=== PATIENT | male | born 1935 | race Caucasian/White ===

== ENCOUNTER → 2016-12-02 | Emergency (ER) | payer MEDICARE, BC ==
[~2016-12-02] VITALS: Ht 182.9 cm; Wt 106.1 kg
[~2016-12-02] MED LIST: ALLO300T2 PO; ASPI325T2 PO; BISA-79 PO; BUPR300T54 PO; CARV3.12 PO; DIGO125T4 PO; FURO80TA3 PO; GABA400C PO; LEVO125T PO; LISI-607 PO; LORA-980 PO; METF500T4 PO; NITR0.4T6 SL; OXYC-128 PO; ROSU20TA PO; SOTA80TA PO; SPIR25TA4 PO; TAMS0.4C34 PO
[2016-12-02 14:00] VITALS: BP 90/46
== END | disposition home or self-care (01) ==
LOC: ER 14:02
DX: L50.9 Urticaria, unspecified (principal); I10 Essential (primary) hypertension; E11.9 Type 2 diabetes mellitus without complications; E78.5 Hyperlipidemia, unspecified; G89.29 Other chronic pain; M10.9 Gout, unspecified; M54.5 Low back pain; Z79.82 Long term (current) use of aspirin; Z88.1 Allergy status to other antibiotic agents; Z88.8 Allergy status to other drugs, medicaments and biological substances; Z95.810 Presence of automatic (implantable) cardiac defibrillator; Z95.0 Presence of cardiac pacemaker
CPT/HCPCS: A4606; Z7610

== ENCOUNTER 2017-07-05 20:02 | Inpatient (IN) | payer MEDICARE, BC ==
[~2017-07-05] VITALS: Ht 185.4 cm; Wt 115.7 kg
--- NOTE | 2017-07-05 20:17 | NUR ---
KASIRA 678 FROM HOME FOR FEVER AND CHILLS / WEAKNESS. PT STATES S/P GLF X 3 DAYS AGO, PT STATES HIT POSTERIOR HEAD. NO TRAUMA NOTED. PT AOX3 RR EVEN AND UNLABORED. NO SOB NOTED. NAD NOTED. NO NVD AT THIS TIME. PT GOWNED AND PLACED ON MONITOR. BRENNA LLOYD AT BEDSIDE FOR EVAL.
[2017-07-05] MEDS ORDERED: predniSONE 20 MG TABLET ONE (20:23)
[2017-07-05] MEDS ORDERED: ACETAMINOPHEN ES 500 MG TABLET ONE (20:23)
--- NOTE | 2017-07-05 20:29 | NUR ---
PT TO RADIOLOGY FOR CT HEAD
[2017-07-05] MEDS ORDERED: ALBUTEROL FS 2.5 MG/3 ML VIAL.NEB CONTNEB ONE (20:30)
[2017-07-05] MEDS ORDERED: IPRATROPIUM NEB FS 0.5 MG/2.5 ML AMPUL.NEB NEB ONE (20:30)
[2017-07-05] MEDS ORDERED: ACETAMINOPHEN ES 500 MG TABLET PO ONE (20:30)
[2017-07-05] MEDS ORDERED: predniSONE 20 MG TABLET PO ONE (20:30)
[2017-07-05] MEDS ORDERED: IV NS 0.9% 500 ML BAG IV ONE (20:30)
[2017-07-05] MEDS ORDERED: ALBUTEROL FS 2.5 MG/0.5 ML VIAL.NEB ONE (20:37)
[2017-07-05] MEDS ORDERED: IPRATROPIUM NEB FS 0.5 MG/2.5 ML AMPUL.NEB ONE (20:37)
--- NOTE | 2017-07-05 20:38 | NUR ---
PT RETURNED FROM CT. RT AT BEDSIDE FOR BREATHING TX.
--- NOTE | 2017-07-05 20:40 | NUR ---
RT AT BEDSIDE FOR BREATHING TX.
[2017-07-05 21:00] LABS: BASOPHILS % (AUTO) 0.5 % (0.0-2.0); EOSINOPHILS # (AUTO) 0.2 /CMM (0.0-0.7); EOSINOPHILS % (AUTO) 2.5 % (0.0-6.0); HEMATOCRIT 30 % (39-51); HEMOGLOBIN 10.4 g/dL (13.5-17.5); LYMPHOCYTES # (AUTO) 1.5 /CMM (0.8-4.8); LYMPHOCYTES % (AUTO) 17.5 % (20.0-44.0); MEAN CORPUSCULAR HEMOGLOBIN 32 PG (26.0-33.0); MEAN CORPUSCULAR HGB CONC 35 g/dl (31.0-36.0); MEAN CORPUSCULAR VOLUME 92 fL (80-96); MONOCYTES # (AUTO) 0.4 /CMM (0.1-1.30); NEUTROPHILS # (AUTO) 6.4 /CMM (1.8-8.9); NEUTROPHILS % (AUTO) 74.5 % (43.0-81.0); PLATELET COUNT (AUTO) 179 /CMM (150-450); RED BLOOD CELL COUNT(AUTO) 3.26 MIL/uL (4.5-6.0); WHITE BLOOD COUNT (AUTO) 8.5 K/uL (4.3-11.0)
[2017-07-05 21:11] LABS: INR 1.12 (0.87-1.13); PROTHROMBIN TIME 12.1 SECS (9.5-12.7)
[2017-07-05 21:14] LABS: CALCIUM, SERUM 8.7 mg/dL (8.5-10.1); CARBON DIOXIDE 26 mmol/L (21-32); CHLORIDE 100 mmol/L (98-107); GLUCOSE 126 mg/dL (74-106); POTASSIUM 3.9 mmol/L (3.5-5.1); SODIUM SERUM 136 mmol/L (136-145); UREA NITROGEN, BLOOD 10 mg/dL (7-18)
[2017-07-05 21:16] LABS: ALANINE AMINOTRANSFERASE 18 U/L (12-78); ALKALINE PHOSPHATASE 96 U/L (46-116); ASPARTATE AMINOTRANSFERASE 14 U/L (15-37); BILIRUBIN,DIRECT 0.2 mg/dL (0.0-0.2); BILIRUBIN,TOTAL 0.8 mg/dL (0.2-1.0); LIPASE 45 U/L (73-393); TOTAL PROTEIN, SERUM 7.2 g/dL (6.4-8.2)
[2017-07-05 21:17] LABS: TROPONIN I 0.029 ng/mL (0.00-0.056)
--- NOTE | 2017-07-05 21:22 | NUR ---
URINE COLLECTED. SENT TO LAB
[2017-07-05 21:28] LABS: APPEARANCE,URINE CLEAR (CLEAR); BILIRUBIN,URINE 1+ (NEGATIVE); BLOOD, URINE NEGATIVE Ery/uL (NEGATIVE); COLOR,URINE YELLOW (YELLOW); KETONES,URINE NEGATIVE (NEGATIVE); LEUKOCYTE ESTERASE ,URINE NEGATIVE (NEGATIVE); NITRITE, URINE NEGATIVE (NEGATIVE); PROTEIN,URINE TRACE mg/dl (NEGATIVE); UGLUCOSE NEGATIVE (NEGATIVE)
[2017-07-05 21:37] LABS: BACTERIA,URINE None seen /HPF (None Seen); RBC,URINE 0-2 /HPF (0-2); SQUAMOUS EPITHELIAL CELL,UR Few /HPF (None Seen); WBC,URINE 0-2 /HPF (0-3)
--- NOTE | 2017-07-05 22:21 | NUR ---
PT TO RADIOLOGY FOR CT ABD/ PELVIS VIA W/C
[2017-07-05] MEDS ORDERED: IV NS 0.9% 250 ML IV ONE (22:30)
--- NOTE | 2017-07-05 22:30 | NUR ---
REPORT GIVEN TO [facility] FOR BED 326-2
--- NOTE | 2017-07-05 22:37 | NUR ---
PT RETURNED FROM CT.
[2017-07-05] MEDS ORDERED: NITROGLYCERIN 0.4 MG/TAB BOTTLE SL PRN (23:30)
[2017-07-05] MEDS ORDERED: BISACODYL (5 MG) 5 MG TABLET.DR PO PRN (23:30)
[2017-07-05] MEDS ORDERED: oxyCODONE/APAP (5/325 MG) 1 UDTAB TABLET PO PRN (23:30)
[2017-07-05] MEDS ORDERED: METOCLOPRAMIDE HCL 10 MG/2 ML VIAL ONE (23:50)
[2017-07-05] MEDS ORDERED: diphenhydrAMINE HCL 50 MG/ML VIAL ONE (23:50)
[2017-07-05 23:55] VITALS: BP 135/73
--- NOTE | 2017-07-05 23:55 | NUR ---
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 PT IS A/O X 3. DX: COPD EXACERBATION. DR. DARLING VIGIL AWARE OF ADMISSION. WITH HL LFA# 18 INTACT. DENIES PAIN. 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 WITH DISCOLORATION BALDO LOWER EXTREMITIES. BED ON LOWER POSITION AND LOCKED FOR SAFETY. UPPER PART OF BED SIDE RAILS ARE UP FOR SAFETY. PT INSTRUCTED TO CALL FOR HELP. CALL LIGHT AND URINAL WITHIN REACH. PLACED ON TELEMETRY.
--- NOTE | 2017-07-05 23:56 | NUR ---
PT TRANSFERED TO TELE BED 326 PER ACLS PROTOCOL.
[2017-07-06] VITALS: BP 135/73
[2017-07-06] MEDS ORDERED: METOCLOPRAMIDE HCL 10 MG/2 ML VIAL IV ONE
[2017-07-06] MEDS ORDERED: diphenhydrAMINE HCL 50 MG/ML VIAL IV ONE
[2017-07-06] MEDS ORDERED: GABAPENTIN 400 MG CAPSULE ONE ×2 (01:08→06:29)
[2017-07-06] MEDS: GABAPENTIN 400 MG CAPSULE PO SCH ×4 (01:13→17:19)
[2017-07-06 04:00] VITALS: BP 134/77
[2017-07-06] MEDS ORDERED: Z GUARD REMEDY 2 OZ OINT TP PRN (04:30)
[2017-07-06] MEDS ORDERED: ONDANSETRON HCL/PF 4 MG/2 ML VIAL IVP PRN (04:30)
[2017-07-06] MEDS ORDERED: HYDROCODONE/APAP 5/325MG 1 EACH TABLET PO PRN (04:30)
[2017-07-06] MEDS ORDERED: ACETAMINOPHEN 325 MG TABLET PO PRN (04:30)
[2017-07-06] MEDS ORDERED: BUMETANIDE INJ 4 MG in IV NS 0.9% 24 ML IV ONE (04:30)
[2017-07-06] MEDS ORDERED: BUMETANIDE INJ 0.25 MG/ML VIAL ONE (04:39)
[2017-07-06 06:45] LABS: BASOPHILS % (AUTO) 0.3 % (0.0-2.0); HEMATOCRIT 33 % (39-51); HEMOGLOBIN 11.1 g/dL (13.5-17.5); LYMPHOCYTES # (AUTO) 0.6 /CMM (0.8-4.8); LYMPHOCYTES % (AUTO) 8.8 % (20.0-44.0); MEAN CORPUSCULAR HEMOGLOBIN 31 PG (26.0-33.0); MEAN CORPUSCULAR HGB CONC 34 g/dl (31.0-36.0); MEAN CORPUSCULAR VOLUME 93 fL (80-96); MONOCYTES # (AUTO) 0.1 /CMM (0.1-1.30); MONOCYTES % (AUTO) 2.2 % (2.0-12.0); NEUTROPHILS # (AUTO) 5.6 /CMM (1.8-8.9); NEUTROPHILS % (AUTO) 88.7 % (43.0-81.0); PLATELET COUNT (AUTO) 188 /CMM (150-450); RDW COEFFICIENT OF VARIATION 16.3 (11.5-15.0); RED BLOOD CELL COUNT(AUTO) 3.55 MIL/uL (4.5-6.0); WHITE BLOOD COUNT (AUTO) 6.3 K/uL (4.3-11.0)
--- NOTE | 2017-07-06 07:00 | NUR ---
TELE/ BASEBALL CLUB MANAGER; PT ON V-PACING 71. SLEPT FINE. WITH OCC. DRY COUGH. DENIES PAIN. WILL ENDORSE TO THE DAY SHIFT NURSE.
[2017-07-06 07:20] LABS: CARBON DIOXIDE 27 mmol/L (21-32); CHLORIDE 101 mmol/L (98-107); GLUCOSE 263 mg/dL (74-106); PHOSPHORUS 3.4 mg/dL (2.5-4.9); POTASSIUM 4.1 mmol/L (3.5-5.1); SODIUM SERUM 138 mmol/L (136-145); UREA NITROGEN, BLOOD 12 mg/dL (7-18)
--- NOTE | 2017-07-06 07:52 | NUR ---
MS/RN OPENING NOTE PATIENT RECEIVED IN BED IN STABLE CONDITION. ALERT AND ORIENTED TIMES 3. NO SIGNS OF ACUTE DISTRESS. NO COMPLAIN OF PAIN OR DISCOMFORT. ALL NEEDS ATTENDED TO. CALL LIGHT WITHIN REACH. WILL CONTINUE TO MONITOR TO ENSURE SAFETY.
[2017-07-06 08:00] VITALS: BP 128/74
[2017-07-06] MEDS ORDERED: SOTALOL HCL 80 MG TABLET PO SCH (09:00)
[2017-07-06] MEDS: LEVOTHYROXINE SODIUM 125 MCG TABLET PO SCH (09:00)
[2017-07-06] MEDS: BUPROPION XL 150 MG TAB.ER.24 PO SCH (09:27)
[2017-07-06] MEDS: FUROSEMIDE 80 MG TABLET PO SCH (09:28)
[2017-07-06] MEDS: ASPIRIN 325 MG TABLET PO SCH (09:28)
[2017-07-06] MEDS: METFORMIN 500 MG TABLET PO SCH ×2 (09:28→16:30)
[2017-07-06] MEDS: TAMSULOSIN 0.4 MG CAP.SR.24H PO SCH (09:28)
[2017-07-06] MEDS: CARVEDILOL 3.125 MG TABLET PO SCH ×2 (09:28→21:00)
[2017-07-06] MEDS: LORATADINE 10 MG TABLET PO SCH (09:28)
[2017-07-06] MEDS: LISINOPRIL (5MG) 5 MG TABLET PO SCH (09:29)
[2017-07-06] MEDS: SPIRONOLACTONE 25 MG TABLET PO SCH (09:30)
[2017-07-06 11:11] LABS: RETICULOCYTE COUNT 2.5 % (0.6-2.5)
[2017-07-06 11:30] LABS: THYROID STIMULATING HORMONE 1.409 uIU/mL (0.358-3.74); URIC ACID 4.2 mg/dL (2.6-7.2)
[2017-07-06] MEDS: DIGOXIN 0.125 MG TABLET PO SCH (12:20)
--- NOTE | 2017-07-06 12:49 | NUR ---
MS/RN NOT ELIGIBLE FOR MRI PATIENT NOT ELIGIBLE FOR MRI DUE TO PT HAS CARDIAC PACEMAKER, WIRE SUTURES S/P CABG IN 1992, AND DENTAL PROSTHESIS. SPOKE WITH PATRICIA FROM RADIOLOGY/MRI AND MADE AWARE.
[2017-07-06 16:00] VITALS: BP 104/57
[2017-07-06] MEDS: POLYETHYLENE GLYCOL 3350 17 GM POWD.PACK PO SCH ×2 (17:01→22:13)
--- NOTE | 2017-07-06 18:23 | NUR ---
MS/RN CLOSING NOTE PATIENT IN BED IN STABLE CONDITION. ALERT AND ORIENTED TIMES 4. NO SIGNS OF ACUTE DISTRESS. NO COMPLAIN OF PAIN OR DISCOMFORT. STOOL OB NEED TO BE COLLECTED. ENDORSE TO NEXT SHIFT. ALL NEEDS ATTENDED TO. CALL LIGHT WITHIN IN REACH. CONTINUE TO MONITOR.
--- NOTE | 2017-07-06 19:30 | NUR ---
TELE/RN OPENING NOTES PT AWAKE A/OX4. CURRENTLY GETTING ECHO DONE. ON RA, BREATHING EVEN AND UNLABORED. NO S/S OF SOB OR PAIN. NO DISTRESS NOTED. ON TELE MONITOR V PACING WITH HEART RATE AT 70. IV TO LEFT FA PATENT AND INTACT. BED IN LOW/LOCKED POSITION, CALL LIGHT IN REACH. SIDE RAILS UPX2. WILL CONTINUE TO MONITOR
[2017-07-06 20:00] VITALS: BP 104/57
[2017-07-06 20:26] VITALS: BP 104/57
[2017-07-06] MEDS: SOTALOL HCL 80 MG TABLET PO SCH (20:42)
[2017-07-06] MEDS: ATORVASTATIN 40 MG TABLET PO SCH (22:00)
--- NOTE | 2017-07-06 22:39 | NUR ---
TELE/RN NOTES PT REFUSING SCHEDULED COREG, LIPITOR AND NEURONTIN. STATES THAT HE HAS SIDE EFFECTS SUCH HALLUCINATIONS, DIZZINESS AND FEELING LIKE HIS "THOUGHTS ARE ALL OVER THE PLACE". ALSO STATES THAT HE DOES NOT TAKE STATINS, ALTHOUGH IN THE MED RECON HE IS TAKING CRESTOR. EDUCATED PT ABOUT RISKS/BENEFITS OF EACH MEDICATION AND SIDE EFFECTS, PT STILL REFUSING. STATED THAT HE WILL NEED TO SPEAK TO THE MD ABOUT THESE MEDS. WILL ALSO ENDORSE TO AM SHIFT
[2017-07-07] VITALS (7 sets, daily range): BP systolic 116–138; BP diastolic 53–74
--- NOTE | 2017-07-07 05:25 | NUR ---
TELE/RN NOTES PT NOTES SLIGHT SOB AND IS REQUESTING BREATHING TX. NON-PRODUCTIVE COUGH NOTED. BREATHING EVEN AND UNLABORED. DOES NOT APPEAR IN DISTRESS. ELEVATED HOB. PAGED DARLING VIGIL FOR ORDER FOR POSSIBLE BREATHING TX.
[2017-07-07] MEDS: GABAPENTIN 400 MG CAPSULE PO SCH ×4 (06:00→16:59)
--- NOTE | 2017-07-07 06:00 | NUR ---
TELE/RN NOTES PT IS CALM, IN NO DISTRESS BUT STILL REQUESTING BREATHING TX. PAGED DARLING VIGIL AGAIN. AWAITING CALL BACK
[2017-07-07 07:13] LABS: BASOPHILS % (AUTO) 0.2 % (0.0-2.0); EOSINOPHILS # (AUTO) 0.2 /CMM (0.0-0.7); EOSINOPHILS % (AUTO) 2.3 % (0.0-6.0); HEMATOCRIT 33 % (39-51); HEMOGLOBIN 11.2 g/dL (13.5-17.5); LYMPHOCYTES # (AUTO) 1.4 /CMM (0.8-4.8); LYMPHOCYTES % (AUTO) 12.8 % (20.0-44.0); MEAN CORPUSCULAR HEMOGLOBIN 32 PG (26.0-33.0); MEAN CORPUSCULAR HGB CONC 34 g/dl (31.0-36.0); MEAN CORPUSCULAR VOLUME 94 fL (80-96); MONOCYTES # (AUTO) 0.4 /CMM (0.1-1.30); MONOCYTES % (AUTO) 3.9 % (2.0-12.0); NEUTROPHILS # (AUTO) 8.8 /CMM (1.8-8.9); NEUTROPHILS % (AUTO) 80.8 % (43.0-81.0); PLATELET COUNT (AUTO) 229 /CMM (150-450); RDW COEFFICIENT OF VARIATION 15.8 (11.5-15.0); RED BLOOD CELL COUNT(AUTO) 3.56 MIL/uL (4.5-6.0); WHITE BLOOD COUNT (AUTO) 10.9 K/uL (4.3-11.0)
--- NOTE | 2017-07-07 07:19 | NUR ---
TELE/RN CLOSING NOTES PT AWAKE, SITTING AT THE SIDE OF THE BED. A/OX3, INCREASED O2 TO 4LPM TEMPORARILY FOR PT'S COMPLAINTS OF SOB. DENIES PAIN, BREATHING IS EVEN AND UNLABORED. DOES NOT APPEAR TO BE IN ANY DISTRESS CURRENTLY. TELE MONITOR SHOWS VPACING WITH HR AT 71. IV TO LFA PATENT AND INTACT. MADE PT COMFORTABLE THROUGHOUT SHIFT. ALL NEEDS MET AND ATTENDED. BED IN LOW/LOCKED POSITION WITH CALL LIGHT IN REACH. SIDE RAILS UPX2. ENDORSED TO AM SHIFT IRINEO.
--- NOTE | 2017-07-07 07:30 | NUR ---
ms rn received on bed, awake,alert, oriented x4,patient on o2 3 liters, denies pain, will monitor patient.
[2017-07-07 07:48] LABS: CHOLESTEROL 188 mg/dL (<200); HDL CHOLESTEROL 41 mg/dL (40-60); LDL 136 mg/dL (0-99); TRIGLYCERIDES 97 mg/dL (30-150)
[2017-07-07 07:51] LABS: ALANINE AMINOTRANSFERASE 28 U/L (12-78); ALBUMIN 3.2 g/dL (3.4-5.0); ALKALINE PHOSPHATASE 99 U/L (46-116); ASPARTATE AMINOTRANSFERASE 19 U/L (15-37); BILIRUBIN,TOTAL 0.7 mg/dL (0.2-1.0); CALCIUM, SERUM 8.9 mg/dL (8.5-10.1); CARBON DIOXIDE 31 mmol/L (21-32); CHLORIDE 100 mmol/L (98-107); CREATININE 1.2 mg/dL (0.6-1.3); GLUCOSE 149 mg/dL (74-106); MAGNESIUM 1.8 mg/dL (1.8-2.4); PHOSPHORUS 3.4 mg/dL (2.5-4.9); POTASSIUM 3.9 mmol/L (3.5-5.1); SODIUM SERUM 138 mmol/L (136-145); TOTAL PROTEIN, SERUM 7.6 g/dL (6.4-8.2); UREA NITROGEN, BLOOD 19 mg/dL (7-18)
[2017-07-07] MEDS: FUROSEMIDE 80 MG TABLET PO SCH (08:55)
[2017-07-07] MEDS: BUPROPION XL 150 MG TAB.ER.24 PO SCH (08:55)
[2017-07-07] MEDS: LORATADINE 10 MG TABLET PO SCH (08:55)
[2017-07-07] MEDS: SPIRONOLACTONE 25 MG TABLET PO SCH (08:55)
[2017-07-07] MEDS: LEVOTHYROXINE SODIUM 125 MCG TABLET PO SCH (08:56)
[2017-07-07] MEDS: TAMSULOSIN 0.4 MG CAP.SR.24H PO SCH (08:56)
[2017-07-07] MEDS: ASPIRIN 325 MG TABLET PO SCH (08:56)
[2017-07-07] MEDS: LISINOPRIL (5MG) 5 MG TABLET PO SCH (09:00)
[2017-07-07] MEDS: CARVEDILOL 3.125 MG TABLET PO SCH ×2 (09:00→21:00)
[2017-07-07] MEDS: METFORMIN 500 MG TABLET PO SCH ×2 (09:00→16:58)
[2017-07-07] MEDS: SOTALOL HCL 80 MG TABLET PO SCH ×2 (09:00→22:10)
--- NOTE | 2017-07-07 09:00 | NUR ---
MS CORONA BREAKFAST SERVED,DUE MEDS GIVEN, TOLERATED WELL.
[2017-07-07] MEDS ORDERED: methylPREDNISolone SOD SUCC 125 MG/2ML VIAL IV SCH (09:30)
[2017-07-07] MEDS ORDERED: IPRATROPIUM NEB FS 0.5 MG/2.5 ML AMPUL.NEB NEB PRN (09:30)
[2017-07-07] MEDS ORDERED: ALBUTEROL FS 2.5 MG/0.5 ML VIAL.NEB NEB PRN (09:30)
--- NOTE | 2017-07-07 09:35 | NUR ---
MS RN WAS SEEN BY DR. CLOUD AND DR. SANTINO Jeff/ ORDERS MADE AND CARRIED OUT.
[2017-07-07] MEDS: ALBUTEROL FS 2.5 MG/0.5 ML VIAL.NEB NEB SCH ×5 (11:05→19:51)
[2017-07-07] MEDS: IPRATROPIUM NEB FS 0.5 MG/2.5 ML AMPUL.NEB NEB SCH ×5 (11:05→19:51)
[2017-07-07] MEDS ORDERED: TETRACYCLINE HCL 250 MG CAPSULE PO SCH (11:30)
[2017-07-07] MEDS: DIGOXIN 0.125 MG TABLET PO SCH (13:00)
[2017-07-07] MEDS: methylPREDNISolone SOD SUCC 125 MG/2ML VIAL IV SCH ×2 (13:00→21:00)
[2017-07-07] MEDS: DOXYCYCLINE HYCLATE (100 MG) 100 MG TABLET PO SCH ×2 (13:00→22:09)
--- NOTE | 2017-07-07 13:00 | NUR ---
MS RN REFUSED DUE MEDS AT THIS TIME.
--- NOTE | 2017-07-07 17:17 | NUR ---
MS RN PATIENT REFUSED MEDICATION AGAIN,WILL MONITOR PATIENT.
--- NOTE | 2017-07-07 18:18 | NUR ---
MS RN ON BED, NO SOB NOTED,ALL NEEDS ATTENDED.
--- NOTE | 2017-07-07 19:30 | NUR ---
MS RN OPENING NOTES: PATIENT IN BED, AOX4, ON O2 AT 2 LPM VIA NC, BREATHING EVEN AND UNLABORED, NO WHEEZING UPON AUSCULTATION, BREATH SOUNDS CLEAR AT UPPER LUNG ESTRADA. PIV OVER LFA G 18 INTACT AND PATENT TO FLUSH. APPEARS CALM AND IN NO DISTRESS. DENIES ANY PAIN OR DIFFICULTY BREATHING AT THIS TIME. PROVIDED FOR COMFORT AND SAFETY. BED IN LOWEST AND LOCKED POSITION, SIDERAILS UP X3. WILL CONT TO MONITOR.
[2017-07-07] MEDS: ATORVASTATIN 40 MG TABLET PO SCH (22:00)
[2017-07-07] MEDS: POLYETHYLENE GLYCOL 3350 17 GM POWD.PACK PO SCH (22:09)
--- NOTE | 2017-07-07 22:15 | NUR ---
RN NOTES: PATIENT REFUSED HIS SOLUMEDROL IV, SAYING IT CAUSES HIM TO HAVE HALLUCINATIONS, CARVEDILOL 3.125 MG, SAYING THAT IT CAUSES HIM TO THROW UP, AND ATORVASTATIN, SAYING THAT HE DOES NOT NEED ANY STATIN. PATIENT EDUCATION GIVEN PER MEDICATION THAT WAS REFUSED, BUT PATIENT STILL REFUSED.
--- NOTE | 2017-07-08 00:06 | NUR ---
RN NOTES: PATIENT REFUSED GABAPENTIN PO SCHEDULED AT THIS TIME, SAYING IT KEEPS HIM UP ALL NIGHT. WILL CONT TO MONITOR.
[2017-07-08] MEDS: ALBUTEROL FS 2.5 MG/0.5 ML VIAL.NEB NEB SCH ×7 (01:30→19:50)
[2017-07-08] MEDS: IPRATROPIUM NEB FS 0.5 MG/2.5 ML AMPUL.NEB NEB SCH ×7 (01:30→19:50)
--- NOTE | 2017-07-08 01:40 | NUR ---
RN NOTES: DR DARLING VIGIL MADE AWARE OF PATIENT'S REFUSAL OF SOLUMEDROL, ATORVASTATIN AND GABAPENTIN. NNO GIVEN.
[2017-07-08] MEDS: methylPREDNISolone SOD SUCC 125 MG/2ML VIAL IV SCH ×2 (05:00→13:00)
[2017-07-08] MEDS: GABAPENTIN 400 MG CAPSULE PO SCH ×5 (06:00→23:23)
--- NOTE | 2017-07-08 06:23 | NUR ---
MS RN CLOSING NOTES: PATIENT IN BED, AOX4, ON O2 AT 2 LPM VIA NC, BREATHING EVEN AND UNLABORED. PIV OVER LFA INTACT AND PATENT TO FLUSH. DUE MEDS GIVEN. PROVIDED FOR COMFORT AND SAFETY. NO ACUTE CHANGE IN CONDITION NOTED THROUGH SHIFT. WILL ENDORSE TO AM RN FOR IRINEO.
[2017-07-08 06:42] LABS: BASOPHILS % (AUTO) 0.2 % (0.0-2.0); EOSINOPHILS % (AUTO) 0.4 % (0.0-6.0); HEMATOCRIT 32 % (39-51); HEMOGLOBIN 10.8 g/dL (13.5-17.5); LYMPHOCYTES # (AUTO) 1.2 /CMM (0.8-4.8); LYMPHOCYTES % (AUTO) 15.8 % (20.0-44.0); MEAN CORPUSCULAR HEMOGLOBIN 32 PG (26.0-33.0); MEAN CORPUSCULAR HGB CONC 34 g/dl (31.0-36.0); MEAN CORPUSCULAR VOLUME 93 fL (80-96); MONOCYTES # (AUTO) 0.5 /CMM (0.1-1.30); MONOCYTES % (AUTO) 6.4 % (2.0-12.0); NEUTROPHILS # (AUTO) 5.8 /CMM (1.8-8.9); NEUTROPHILS % (AUTO) 77.2 % (43.0-81.0); PLATELET COUNT (AUTO) 219 /CMM (150-450); RDW COEFFICIENT OF VARIATION 15.3 (11.5-15.0); RED BLOOD CELL COUNT(AUTO) 3.41 MIL/uL (4.5-6.0); WHITE BLOOD COUNT (AUTO) 7.5 K/uL (4.3-11.0)
[2017-07-08 06:50] LABS: CALCIUM, SERUM 9.2 mg/dL (8.5-10.1); CARBON DIOXIDE 32 mmol/L (21-32); CHLORIDE 99 mmol/L (98-107); CREATININE 1.1 mg/dL (0.6-1.3); GLUCOSE 154 mg/dL (74-106); SODIUM SERUM 137 mmol/L (136-145); UREA NITROGEN, BLOOD 22 mg/dL (7-18)
--- NOTE | 2017-07-08 07:30 | NUR ---
MS Initial Notes: Patient resting in bed. Patient alert oriented x4. Non-labored breathing noted. Patient on 2 L nasal cannula. No signs of distress noted. IV site patent and intact. Bed at lowest/locked position. Call light within reach. Will continue to monitor.
--- NOTE | 2017-07-08 07:40 | NUR ---
RT DUPLICATE BREATHING TX ORDER, ADMINISTERED ONE SET AND NON ADMINISTERED DUPLICATE. PT IS AWAKE AND ALERT. NO SIGNS OF SOB OR RESPIRATORY DISTRESS NOTED AT THIS TIME.
[2017-07-08 08:00] VITALS: BP_SYST 118; BP_SYST 141; BP_DIAS 69; BP_DIAS 71
[2017-07-08] MEDS: LEVOTHYROXINE SODIUM 125 MCG TABLET PO SCH ×2 (08:20→11:07)
[2017-07-08] MEDS: BUPROPION XL 150 MG TAB.ER.24 PO SCH (09:00)
[2017-07-08] MEDS: CARVEDILOL 3.125 MG TABLET PO SCH ×2 (09:00→21:00)
[2017-07-08] MEDS: METFORMIN 500 MG TABLET PO SCH ×2 (09:00→17:00)
[2017-07-08] MEDS: ASPIRIN 325 MG TABLET PO SCH (09:28)
[2017-07-08] MEDS: TAMSULOSIN 0.4 MG CAP.SR.24H PO SCH (09:29)
[2017-07-08] MEDS: SPIRONOLACTONE 25 MG TABLET PO SCH (09:29)
[2017-07-08] MEDS: DOXYCYCLINE HYCLATE (100 MG) 100 MG TABLET PO SCH ×2 (09:30→22:03)
[2017-07-08] MEDS: FUROSEMIDE 80 MG TABLET PO SCH (09:30)
[2017-07-08] MEDS: SOTALOL HCL 80 MG TABLET PO SCH ×2 (09:30→22:03)
[2017-07-08] MEDS: LORATADINE 10 MG TABLET PO SCH (09:31)
[2017-07-08] MEDS: LISINOPRIL (5MG) 5 MG TABLET PO SCH (09:32)
--- NOTE | 2017-07-08 10:34 | NUR ---
MS Notes: Spoke to Dr. Gold. He clarified that the Furosemide ordered at 10:30 is an additional order that is to be administered
[2017-07-08] MEDS: FUROSEMIDE 100 MG/10 ML VIAL IV SCH ×3 (10:50→19:09)
--- NOTE | 2017-07-08 13:25 | NUR ---
MS Notes: Informed Dr. Estevez of patient's refusal of medications.
[2017-07-08] MEDS: DIGOXIN 0.125 MG TABLET PO SCH (13:28)
[2017-07-08] MEDS ORDERED: SOD FERRIC GLUC 125 MG in IV NS 0.9% 100 ML IV SCH (14:00)
--- NOTE | 2017-07-08 15:47 | NUR ---
ELFEGO received a call from [facility] TERA Bunn stating that pt. would like to speak with a counselor. SW met with pt. bedside. Pt. is alert and oriented x4. Pt. is very polite and pleasant. Pt. informed SW that his dog Easton at home has an ear infection and is not doing well. Pt. is worried since his is unable to drive and uses a walker and is unable to take the dog to their vet located on [facility] in [place]. ELFEGO called pt's animal vet clinic with pt. bedside and informed them of the situation. They informed SW that they cannot have anyone go picker operator the dog for the pt., however, to call Home Pet Doctor, Dr. Ramy Rea or Dr. Svetlana Caro at [facility] . ELFEGO called Dr. Ramy Rea and left him a voicemail message requesting a call back number for pt. . ELFEGO also called Dr. Mota but was unable to leave a voicemail message. ELFEGO gave both the phone numbers for mobile vets to the pt. Addendum: 07/08/17 at 1604 by REBECCA TELLES Pt. would like to be discharged home by noon tomorrow since he has an appt. at the vet at 2PM. Pt. will need ambulance transportation to his home. ELFEGO to inform briefcase sewer. Addendum: 07/08/17 at 1607 by REBECCA ORTEGA SW health policy manager Jacki was informed regarding pt. needed an ambulance tomorrow upon discharge. Jacki informed SW she will place the ambulance on will-call.
[2017-07-08 16:00] VITALS: BP 131/84
--- NOTE | 2017-07-08 19:15 | NUR ---
ms rn closing notes All needs provided, attended, and anticipated. Kept patient clean and comfortable in bed, call light with in patient reach, endorsed to next shift RN to continue care. No complaint of pain or discomfort at this time.
[2017-07-08 20:00] VITALS: BP 121/83
--- NOTE | 2017-07-08 20:00 | NUR ---
RN NOTES PATIENT UP ON CHAIR, ALERT AND ORIENTED X3, CALM, NO SOB, ON ROOM AIR, SPO2 96%, DENIES ANY PAIN AT THIS TIME, ABLE TO AMBULATE WITH WALKER, UNSTEADY GAIT, CONTINENT OF BOWEL AND BLADDER. NEEDS ATTENDED, CALL LIGHT WITHIN REACH.
[2017-07-08] MEDS: ATORVASTATIN 40 MG TABLET PO SCH (22:00)
[2017-07-08] MEDS: POLYETHYLENE GLYCOL 3350 17 GM POWD.PACK PO SCH (22:03)
--- NOTE | 2017-07-08 22:10 | NUR ---
RN NOTES PATIENT REFUSED LIPITOR STATING MEDICATION MADE PT CONFUSED. REFUSED COREG, EXPLAINED TO PATIENT RISKS AND BENEFITS AND OFFERED X3, PATIENT STILL REFUSED.
--- NOTE | 2017-07-08 23:24 | NUR ---
RN NOTES REFUSED NEURONTIN, PER PATIENT HAVING HALLUCINATIONS, WILL RETURN MEDICATION
[2017-07-09] MEDS: IPRATROPIUM NEB FS 0.5 MG/2.5 ML AMPUL.NEB NEB SCH ×2 (01:30→08:01)
[2017-07-09] MEDS: ALBUTEROL FS 2.5 MG/0.5 ML VIAL.NEB NEB SCH ×2 (01:30→08:01)
[2017-07-09] MEDS: GABAPENTIN 400 MG CAPSULE PO SCH (06:00)
[2017-07-09 06:35] LABS: BASOPHILS % (AUTO) 0.7 % (0.0-2.0); EOSINOPHILS # (AUTO) 0.4 /CMM (0.0-0.7); EOSINOPHILS % (AUTO) 5.6 % (0.0-6.0); HEMATOCRIT 35 % (39-51); HEMOGLOBIN 11.8 g/dL (13.5-17.5); LYMPHOCYTES # (AUTO) 2.1 /CMM (0.8-4.8); LYMPHOCYTES % (AUTO) 28.8 % (20.0-44.0); MEAN CORPUSCULAR HEMOGLOBIN 32 PG (26.0-33.0); MEAN CORPUSCULAR HGB CONC 34 g/dl (31.0-36.0); MEAN CORPUSCULAR VOLUME 93 fL (80-96); MONOCYTES # (AUTO) 0.6 /CMM (0.1-1.30); MONOCYTES % (AUTO) 7.9 % (2.0-12.0); NEUTROPHILS # (AUTO) 4.1 /CMM (1.8-8.9); PLATELET COUNT (AUTO) 244 /CMM (150-450); RDW COEFFICIENT OF VARIATION 15.5 (11.5-15.0); RED BLOOD CELL COUNT(AUTO) 3.74 MIL/uL (4.5-6.0); WHITE BLOOD COUNT (AUTO) 7.3 K/uL (4.3-11.0)
[2017-07-09 06:43] LABS: ALANINE AMINOTRANSFERASE 35 U/L (12-78); ALBUMIN 3.3 g/dL (3.4-5.0); ALKALINE PHOSPHATASE 100 U/L (46-116); ASPARTATE AMINOTRANSFERASE 25 U/L (15-37); BILIRUBIN,TOTAL 0.5 mg/dL (0.2-1.0); CALCIUM, SERUM 9.1 mg/dL (8.5-10.1); CARBON DIOXIDE 34 mmol/L (21-32); CHLORIDE 97 mmol/L (98-107); CREATININE 1.2 mg/dL (0.6-1.3); GLUCOSE 124 mg/dL (74-106); PHOSPHORUS 4.4 mg/dL (2.5-4.9); POTASSIUM 3.5 mmol/L (3.5-5.1); SODIUM SERUM 139 mmol/L (136-145); TOTAL PROTEIN, SERUM 7.7 g/dL (6.4-8.2); UREA NITROGEN, BLOOD 23 mg/dL (7-18)
--- NOTE | 2017-07-09 06:49 | NUR ---
RN NOTES PATIENT IS ALERT AND AWAKE, NO SOB, ON 2LPM VIA NC, RESPIRATION EVEN AND UNLABORED. NO COMPLAIN OF PAIN, COMPLIANT WITH CPAP DURING SLEEP, SELECTIVE ON MEDICATIONS, REFUSED LIPITOR, NEURONTIN AND COREG, CITING ADVERSE SIDE EFFECTS SUCH HALLUCINATIONS AND CONFUSION. MD AWARE OF REFUSAL. AMBULATES WITH WALKER TO THE TOILET, STOPPING MIDWAY FOR SOB. ALL NEEDS ATTENDED, CALL LIGHT WITHIN REACH.
--- NOTE | 2017-07-09 07:30 | NUR ---
PT RECEIVED RESTING COMFORTABLY IN BED. NO S/S OR C/O PAIN OR DISTRESS NOTED. SIDE RAILS UP X2, CALL LIGHT LEFT WITHIN REACH. WILL CONTINUE PLAN OF CARE.
[2017-07-09 08:00] VITALS: BP 126/72
[2017-07-09] MEDS: BUPROPION XL 150 MG TAB.ER.24 PO SCH (09:00)
[2017-07-09] MEDS ORDERED: ASPIRIN 81 MG TAB.CHEW PO SCH (09:00)
[2017-07-09] MEDS: CARVEDILOL 3.125 MG TABLET PO SCH (09:00)
[2017-07-09] MEDS: METFORMIN 500 MG TABLET PO SCH (09:00)
[2017-07-09] MEDS ORDERED: predniSONE 20 MG TABLET PO SCH (09:00)
[2017-07-09] MEDS: TAMSULOSIN 0.4 MG CAP.SR.24H PO SCH (09:19)
[2017-07-09 09:20] VITALS: BP 126/72
[2017-07-09] MEDS: SPIRONOLACTONE 25 MG TABLET PO SCH (09:20)
[2017-07-09] MEDS: LISINOPRIL (5MG) 5 MG TABLET PO SCH (09:20)
[2017-07-09] MEDS: DOXYCYCLINE HYCLATE (100 MG) 100 MG TABLET PO SCH (09:20)
[2017-07-09] MEDS: FUROSEMIDE 80 MG TABLET PO SCH (09:20)
[2017-07-09] MEDS: SOTALOL HCL 80 MG TABLET PO SCH (09:20)
[2017-07-09] MEDS: LEVOTHYROXINE SODIUM 125 MCG TABLET PO SCH (09:21)
[2017-07-09] MEDS: LORATADINE 10 MG TABLET PO SCH (09:21)
--- NOTE | 2017-07-09 10:06 | NUR ---
PATIENT REFUSED ABG. AWARE.
--- NOTE | 2017-07-09 12:15 | NUR ---
DISCHARGE INSTRUCTIONS GIVEN ORDERED. ENCOURAGED TO FOLLOW UP WITH PMD INSTRUCTED. ALL QUESTIONS AND CONCERNS ADDRESSED. PATIENT VERBALIZED UNDERSTANDING. MEDICATION RECONCILIATION FORM COMPLETED AND COPY GIVEN TO PATIENT. IV REMOVED WITH CATHETER INTACT, PRESSURE DRESSING APPLIED. PATIENT TAKEN TO AMBULANCE VIA GURNEY WITH ALL PERSONAL BELONGINGS. NO DISTRESS NOTED AT TIME OF DEPARTURE.
== END 2017-07-09 12:15 | disposition home or self-care (01) | DRG 291 ==
LOC: ER 20:04 → TELE 22:24 → MED 07-07 13:29
PROVIDERS: ADMIT Nurse Practitioner Acute Care; ATTEND Nurse Practitioner Acute Care
DX: I11.0 Hypertensive heart disease with heart failure (principal); J96.21 Acute and chronic respiratory failure with hypoxia; E87.2 Acidosis; E11.42 Type 2 diabetes mellitus with diabetic polyneuropathy; D68.59 Other primary thrombophilia; J44.1 Chronic obstructive pulmonary disease with (acute) exacerbation; S09.90XA Unspecified injury of head, initial encounter; I48.91 Unspecified atrial fibrillation; E66.01 Morbid (severe) obesity due to excess calories; I50.43 Acute on chronic combined systolic (congestive) and diastolic (congestive) heart failure; F32.9 Major depressive disorder, single episode, unspecified; W19.XXXA Unspecified fall, initial encounter; E78.5 Hyperlipidemia, unspecified; D50.9 Iron deficiency anemia, unspecified; G47.33 Obstructive sleep apnea (adult) (pediatric); N40.0 Benign prostatic hyperplasia without lower urinary tract symptoms; Z87.891 Personal history of nicotine dependence; Z86.73 Personal history of transient ischemic attack (TIA), and cerebral infarction without residual deficits; Z95.1 Presence of aortocoronary bypass graft; Z95.810 Presence of automatic (implantable) cardiac defibrillator; Z79.01 Long term (current) use of anticoagulants; I25.10 Atherosclerotic heart disease of native coronary artery without angina pectoris; K21.9 Gastro-esophageal reflux disease without esophagitis; Z68.33 Body mass index [BMI] 33.0-33.9, adult; Z79.899 Other long term (current) drug therapy; Z85.820 Personal history of malignant melanoma of skin; R90.89 Other abnormal findings on diagnostic imaging of central nervous system; R93.5 Abnormal findings on diagnostic imaging of other abdominal regions, including retroperitoneum; M10.9 Gout, unspecified; Z79.84 Long term (current) use of oral hypoglycemic drugs; Z92.3 Personal history of irradiation; Y93.9 Activity, unspecified; Y92.009 Unspecified place in unspecified non-institutional (private) residence as the place of occurrence of the external cause
CPT/HCPCS: 36415; 70450-TC; 71010-TC; 71250-TC; 80048-TC; 80053-TC; 80061-TC; 80076-TC; 80162-TC; 81000-TC; 82272-TC; 82306; 82728-TC; 82746; 83540-TC; 83605-TC; 83615-TC; 83690-TC; 83735-TC; 83880; 84100-TC; 84443-TC; 84484-TC; 84550-TC; 85025-TC; 85045-TC; 85652-TC; 85730-TC; 87040-TC; 87081-TC; 93307-TC; A4216; A4606; A6402; J1200; J1940; J2765; J2916; J2930; J3490; J7030; J7040; J7050; Z7610

== ENCOUNTER 2017-08-18 09:27 | Inpatient (IN) | payer MEDICARE, BC ==
[~2017-08-18] VITALS: Ht 157.5 cm; Wt 113.4 kg
[2017-08-18] MEDS ORDERED: NITROGLYCERIN PACKET 1 GM PACKET TD ONE (09:30)
[2017-08-18] MEDS ORDERED: FUROSEMIDE 40 MG/4 ML VIAL IV ONE (09:30)
--- NOTE | 2017-08-18 09:30 | NUR ---
[id number] FROM HOME: SOB ~ 7-10 DAYS, SWOLLEN LOWER EXTREMITIES. DENIES ANY PAIN. PT HAS LFA #20 G IV ACCESS. BLOOD SAMPLE COLLECTED SENT TO LAB. PLACED ON MONITOR. AWAITING MD ORDER.
[2017-08-18] MEDS ORDERED: FUROSEMIDE 40 MG/4 ML VIAL ONE (09:37)
[2017-08-18] MEDS ORDERED: NITROGLYCERIN PACKET 1 GM PACKET ONE (09:37)
[2017-08-18 09:46] LABS: HEMATOCRIT 30 % (39-51); HEMOGLOBIN 10.6 g/dL (13.5-17.5); MEAN CORPUSCULAR HEMOGLOBIN 32 PG (26.0-33.0); MEAN CORPUSCULAR HGB CONC 35 g/dl (31.0-36.0); MEAN CORPUSCULAR VOLUME 92 fL (80-96); PLATELET COUNT (AUTO) 169 /CMM (150-450); RDW COEFFICIENT OF VARIATION 14.2 (11.5-15.0)
[2017-08-18 09:51] LABS: CALCIUM, SERUM 9.1 mg/dL (8.5-10.1); CARBON DIOXIDE 28 mmol/L (21-32); CHLORIDE 99 mmol/L (98-107); CREATININE 1.2 mg/dL (0.6-1.3); GLUCOSE 170 mg/dL (74-106); POTASSIUM 4.6 mmol/L (3.5-5.1); SODIUM SERUM 134 mmol/L (136-145); UREA NITROGEN, BLOOD 16 mg/dL (7-18)
[2017-08-18 09:59] LABS: TROPONIN I 0.037 ng/mL (0.00-0.056)
--- NOTE | 2017-08-18 10:02 | NUR ---
X-RAY TECH AT BEDSIDE.
[2017-08-18 10:03] LABS: ALANINE AMINOTRANSFERASE 24 U/L (12-78); ALBUMIN 3.3 g/dL (3.4-5.0); ALKALINE PHOSPHATASE 101 U/L (46-116); ASPARTATE AMINOTRANSFERASE 20 U/L (15-37); B-TYPE NATRIURETIC PEPTIDE 1510 PG/ML (0-125); BILIRUBIN,DIRECT 0.2 mg/dL (0.0-0.2); BILIRUBIN,TOTAL 0.9 mg/dL (0.2-1.0); TOTAL PROTEIN, SERUM 7.2 g/dL (6.4-8.2)
[2017-08-18 10:08] LABS: INR 1.07 (0.87-1.13); PROTHROMBIN TIME 11.1 SECS (9.5-12.7)
--- NOTE | 2017-08-18 10:13 | NUR ---
CALLED DONALD ITS DR. NOEL
[2017-08-18] MEDS ORDERED: CHOL200026 PO (10:19)
[2017-08-18] MEDS ORDERED: ASCO10007 PO (10:19)
[2017-08-18] MEDS ORDERED: FISH1CAP16 PO (10:19)
[2017-08-18] MEDS ORDERED: ASPI81TA2 PO (10:19)
[2017-08-18] MEDS ORDERED: HYDR-548 PO (10:19)
[2017-08-18] MEDS ORDERED: LEVO150T8 PO (10:19)
--- NOTE | 2017-08-18 10:19 | NUR ---
CALLED DR HOLBROOK [phone]
--- NOTE | 2017-08-18 10:19 | NUR ---
REPORT GIVEN TO ORESTES CORONA FOR ADMISSION.
[2017-08-18] MEDS ORDERED: DEXTROSE 50%-WATER 50 ML DISP.SYRIN IV PRN (11:00)
[2017-08-18] MEDS ORDERED: MAGNESIUM HYDROXIDE 30 ML UDC PO PRN (11:00)
[2017-08-18] MEDS ORDERED: MAG HYDROX/AL HYDROX/SIMETH 30 ML UDC PO PRN (11:00)
[2017-08-18] MEDS ORDERED: Z GUARD REMEDY 2 OZ OINT TP PRN (11:00)
[2017-08-18] MEDS ORDERED: ACETAMINOPHEN 325 MG TABLET PO PRN (11:00)
[2017-08-18] MEDS ORDERED: ONDANSETRON HCL/PF 4 MG/2 ML VIAL IVP PRN (11:00)
[2017-08-18] MEDS ORDERED: LEVOTHYROXINE SODIUM 150 MCG TABLET PO SCH (11:00)
[2017-08-18] MEDS ORDERED: HYDROCODONE/APAP 10/325MG 1 EA TABLET PO PRN (11:00)
[2017-08-18] MEDS ORDERED: ZOLPIDEM TARTRATE 5 MG TABLET PO PRN (11:00)
[2017-08-18 11:02] LABS: BASOPHILS % (AUTO) 0.3 % (0.0-2.0); EOSINOPHILS # (AUTO) 0.1 /CMM (0.0-0.7); EOSINOPHILS % (AUTO) 1.3 % (0.0-6.0); LYMPHOCYTES # (AUTO) 1.1 /CMM (0.8-4.8); LYMPHOCYTES % (AUTO) 11.9 % (20.0-44.0); MONOCYTES # (AUTO) 0.4 /CMM (0.1-1.30); NEUTROPHILS # (AUTO) 7.3 /CMM (1.8-8.9); NEUTROPHILS % (AUTO) 81.5 % (43.0-81.0)
--- NOTE | 2017-08-18 11:20 | NUR ---
PT TRANSFERRED TO ROOM 312-1 VIA ACLS PROTOCOL. ORESTES CORONA FOR IRINEO.
[2017-08-18 11:30] VITALS: BP 114/66
--- NOTE | 2017-08-18 11:30 | NUR ---
soldering machine operator automaticradio television technical director notes Admitted a 81 year old male patient who came in due to CHF Dx and chief complaint of shortness of breath. Skin assessment done and skin is intact no skin issues noted. IV on the left forearm #20 intact and patent. Patient weigh 274lbs on the bed scale. no Complaint of pain or discomfort noted. On 02 @ 2lpm via NC and tolerated well, 02 saturation of 96%. Vital signs checked and recorded. Dr. Dozier is the admitting MD and made aware. Admission orders on file and administered due medications. Kept patient clean and comfortable in bed, call light with in patient reach, will continue to monitor accordingly. On tele monitor V pacing heart rate of 70.
[2017-08-18] MEDS: FUROSEMIDE 40 MG/4 ML VIAL IV SCH ×3 (11:45→23:30)
[2017-08-18] MEDS: BLOOD SUGAR DIAGNOSTIC 1 EACH STRIP IN SCH ×3 (11:46→21:31)
[2017-08-18] MEDS: ENOXAPARIN SODIUM 40 MG/0.4 ML DISP.SYRIN SQ SCH (11:46)
[2017-08-18 12:00] VITALS: BP 114/66
[2017-08-18] MEDS: INSULIN REGULAR, HUMAN 100 UNIT/ML 3 ML VIAL SQ PRN ×3 (12:18→21:34)
[2017-08-18 16:00] VITALS: BP 130/72
[2017-08-18] MEDS: SOTALOL HCL 80 MG TABLET PO SCH (17:18)
--- NOTE | 2017-08-18 19:15 | NUR ---
RN OPEN NOTES RECEIVED PATIENT AWAKE IN BED. A/O X3. NO SIGNS OF DISTRESS OR DISCOMFORT. BREATHING EVEN AND UNLABORED. ON 4LPM O2 VIA NC. ON TELE MONITORING WITH V-PACING 70 NOTED. IV ACCESS IN LFA, PATENT AND INTACT, NO SIGNS OF REDNESS OR INFILTRATION. BED IN LOW LOCKED POSITION WITH HOB ELEVATED AND SIDE RAILS X2. CALL LIGHT WITHIN REACH. WILL CONTINUE TO MONITOR.
--- NOTE | 2017-08-18 19:21 | NUR ---
telesales agent closing notes All needs provided, attended, and anticipated. Kept patient clean and comfortable in bed, call light with in patient reach,endorsed to next shift RN to continue care. On tele monitor V pacing heart rate of 70.
[2017-08-18 20:00] VITALS: BP 110/58
[2017-08-18] MEDS: ASPIRIN 81 MG TAB.CHEW PO SCH (21:31)
[2017-08-18] MEDS: LISINOPRIL (5MG) 5 MG TABLET PO SCH (21:34)
[2017-08-19] VITALS: BP 109/67
[2017-08-19 04:00] VITALS: BP 114/68
[2017-08-19] MEDS: FUROSEMIDE 40 MG/4 ML VIAL IV SCH ×3 (06:14→18:00)
[2017-08-19] MEDS: INSULIN REGULAR, HUMAN 100 UNIT/ML 3 ML VIAL SQ PRN ×3 (06:19→21:53)
[2017-08-19] MEDS: BLOOD SUGAR DIAGNOSTIC 1 EACH STRIP IN SCH ×4 (06:30→21:51)
[2017-08-19 06:41] LABS: BASOPHILS # (AUTO) 0.1 /CMM (0.0-0.2); BASOPHILS % (AUTO) 0.7 % (0.0-2.0); EOSINOPHILS # (AUTO) 0.3 /CMM (0.0-0.7); EOSINOPHILS % (AUTO) 4.6 % (0.0-6.0); HEMATOCRIT 33 % (39-51); HEMOGLOBIN 10.9 g/dL (13.5-17.5); LYMPHOCYTES # (AUTO) 1.5 /CMM (0.8-4.8); LYMPHOCYTES % (AUTO) 19.8 % (20.0-44.0); MEAN CORPUSCULAR HEMOGLOBIN 32 PG (26.0-33.0); MEAN CORPUSCULAR HGB CONC 33 g/dl (31.0-36.0); MEAN CORPUSCULAR VOLUME 95 fL (80-96); MONOCYTES # (AUTO) 0.6 /CMM (0.1-1.30); MONOCYTES % (AUTO) 7.3 % (2.0-12.0); NEUTROPHILS # (AUTO) 5.1 /CMM (1.8-8.9); NEUTROPHILS % (AUTO) 67.6 % (43.0-81.0); PLATELET COUNT (AUTO) 181 /CMM (150-450); RDW COEFFICIENT OF VARIATION 14.8 (11.5-15.0); RED BLOOD CELL COUNT(AUTO) 3.46 MIL/uL (4.5-6.0); WHITE BLOOD COUNT (AUTO) 7.6 K/uL (4.3-11.0)
[2017-08-19 06:56] LABS: B-TYPE NATRIURETIC PEPTIDE 1861 PG/ML (0-125); CARBON DIOXIDE 35 mmol/L (21-32); CHLORIDE 100 mmol/L (98-107); GLUCOSE 138 mg/dL (74-106); MAGNESIUM 1.8 mg/dL (1.8-2.4); POTASSIUM 3.2 mmol/L (3.5-5.1); SODIUM SERUM 139 mmol/L (136-145); UREA NITROGEN, BLOOD 16 mg/dL (7-18)
[2017-08-19 07:00] LABS: CHOLESTEROL 161 mg/dL (<200); HDL CHOLESTEROL 40 mg/dL (40-60); LDL 111 mg/dL (0-99); THYROID STIMULATING HORMONE 4.118 uIU/mL (0.358-3.74); TRIGLYCERIDES 82 mg/dL (30-150)
--- NOTE | 2017-08-19 07:12 | NUR ---
RN CLOSING NOTES PATIENT AWAKE IN BED. A/O X3. NO SIGNS OF DISTRESS OR DISCOMFORT. BREATHING EVEN AND UNLABORED. ON 4LPM O2 VIA NC. ON TELE MONITORING WITH V-PACING 70 NOTED. IV ACCESS IN LFA, PATENT AND INTACT, NO SIGNS OF REDNESS OR INFILTRATION. NO SIGNIFICANT CHANGES THROUGH THE NIGHT. ALL NEEDS MET. BED IN LOW LOCKED POSITION WITH HOB ELEVATED AND SIDE RAILS X2. CALL LIGHT WITHIN REACH. WILL ENDORSE TO AM SHIFT FOR IRINEO.
--- NOTE | 2017-08-19 08:00 | NUR ---
tele contact lens blocker: initial assessment received pt in bed awake, a/ox4. no c/o sob, chest pain, or any discomfort. tele v pacing=70. instructed to call for assistance. will continue to monitor.
[2017-08-19 08:24] VITALS: BP 98/48
[2017-08-19] MEDS: SOTALOL HCL 80 MG TABLET PO SCH ×2 (09:00→16:57)
[2017-08-19] MEDS: LEVOTHYROXINE SODIUM 75 MCG TABLET PO SCH (09:05)
[2017-08-19] MEDS: TAMSULOSIN 0.4 MG CAP.SR.24H PO SCH (09:05)
[2017-08-19] MEDS: ENOXAPARIN SODIUM 40 MG/0.4 ML DISP.SYRIN SQ SCH (09:08)
--- NOTE | 2017-08-19 09:30 | NUR ---
tele marketing program coordinator: md visit seen and examined by dr. stephens at this time. informed md re: current wt and yesterday weight. will continue to monitor.
[2017-08-19] MEDS: POTASSIUM CHLORIDE 20 MEQ TAB.PRT.SR PO SCH ×2 (10:00→11:11)
[2017-08-19] MEDS ORDERED: LORAZEPAM 0.5 MG TABLET PO ONE (10:30)
--- NOTE | 2017-08-19 11:30 | NUR ---
tele continuous pickling line pickler helper: notes up in chair at this time. no c/o sob or any discomfort. call light within reach.
[2017-08-19 12:00] VITALS: BP 88/50
[2017-08-19 16:00] VITALS: BP 111/59
--- NOTE | 2017-08-19 16:15 | NUR ---
tele gleason gear generator: notes tele removed as ordered, status change to medsurg as ordered.
--- NOTE | 2017-08-19 18:52 | NUR ---
m/s screen machine operator: notes up in chair at this time. no c/o sob or any discomfort. remains on o2 at 2l/min via n/c. needs attended. no distress noted. will continue to monitor.
--- NOTE | 2017-08-19 19:50 | NUR ---
RN OPEN NOTES RECEIVED PATIENT AWAKE IN BED. A/O X3. NO SIGNS OF DISTRESS OR DISCOMFORT. BREATHING EVEN AND UNLABORED. ON 2LPM O2 VIA NC. IV ACCESS IN LFA, PATENT AND INTACT, NO SIGNS OF REDNESS OR INFILTRATION. BED IN LOW LOCKED POSITION WITH HOB ELEVATED AND SIDE RAILS X2. CALL LIGHT WITHIN REACH. WILL CONTINUE TO MONITOR.
[2017-08-19 20:00] VITALS: BP 114/68
[2017-08-19] MEDS: LISINOPRIL (5MG) 5 MG TABLET PO SCH (21:52)
[2017-08-19] MEDS: ASPIRIN 81 MG TAB.CHEW PO SCH (21:52)
[2017-08-20] MEDS: INSULIN REGULAR, HUMAN 100 UNIT/ML 3 ML VIAL SQ PRN ×2 (06:26→11:54)
[2017-08-20] MEDS: LEVOTHYROXINE SODIUM 75 MCG TABLET PO SCH (06:31)
[2017-08-20] MEDS: BLOOD SUGAR DIAGNOSTIC 1 EACH STRIP IN SCH ×2 (06:31→11:51)
[2017-08-20 06:47] LABS: BASOPHILS % (AUTO) 0.9 % (0.0-2.0); EOSINOPHILS # (AUTO) 0.5 /CMM (0.0-0.7); EOSINOPHILS % (AUTO) 8.2 % (0.0-6.0); HEMATOCRIT 33 % (39-51); HEMOGLOBIN 11.1 g/dL (13.5-17.5); LYMPHOCYTES # (AUTO) 1.5 /CMM (0.8-4.8); LYMPHOCYTES % (AUTO) 25.8 % (20.0-44.0); MEAN CORPUSCULAR HEMOGLOBIN 31 PG (26.0-33.0); MEAN CORPUSCULAR HGB CONC 34 g/dl (31.0-36.0); MEAN CORPUSCULAR VOLUME 93 fL (80-96); MONOCYTES # (AUTO) 0.5 /CMM (0.1-1.30); MONOCYTES % (AUTO) 8.2 % (2.0-12.0); NEUTROPHILS # (AUTO) 3.2 /CMM (1.8-8.9); NEUTROPHILS % (AUTO) 56.9 % (43.0-81.0); PLATELET COUNT (AUTO) 189 /CMM (150-450); RDW COEFFICIENT OF VARIATION 14.8 (11.5-15.0); RED BLOOD CELL COUNT(AUTO) 3.56 MIL/uL (4.5-6.0); WHITE BLOOD COUNT (AUTO) 5.6 K/uL (4.3-11.0)
[2017-08-20 07:01] LABS: ALANINE AMINOTRANSFERASE 23 U/L (12-78); ALKALINE PHOSPHATASE 87 U/L (46-116); ASPARTATE AMINOTRANSFERASE 16 U/L (15-37); BILIRUBIN,TOTAL 0.6 mg/dL (0.2-1.0); CARBON DIOXIDE 33 mmol/L (21-32); CHLORIDE 101 mmol/L (98-107); CREATININE 0.9 mg/dL (0.6-1.3); GLUCOSE 133 mg/dL (74-106); PHOSPHORUS 4.2 mg/dL (2.5-4.9); POTASSIUM 3.6 mmol/L (3.5-5.1); SODIUM SERUM 138 mmol/L (136-145); TOTAL PROTEIN, SERUM 6.9 g/dL (6.4-8.2); UREA NITROGEN, BLOOD 18 mg/dL (7-18)
--- NOTE | 2017-08-20 07:14 | NUR ---
RN CLOSING NOTES PATIENT AWAKE IN BED. A/O X4. NO SIGNS OF DISTRESS OR DISCOMFORT. BREATHING EVEN AND UNLABORED. ON 2LPM O2 VIA NC. IV ACCESS IN LFA, PATENT AND INTACT, NO SIGNS OF REDNESS OR INFILTRATION. NO SIGNIFICANT CHANGES THROUGH THE NIGHT. ALL NEEDS MET. BED IN LOW LOCKED POSITION WITH HOB ELEVATED AND SIDE RAILS X2. CALL LIGHT WITHIN REACH. WILL ENDORSE TO AM SHIFT FOR IRINEO.
[2017-08-20 08:00] VITALS: BP 108/62
--- NOTE | 2017-08-20 08:18 | NUR ---
RN OPENING NOTES RECEIVED PATIENT SITTING UPRIGHT AT THE SIDE OF THE BED. AOX4. DENIES PAIN. DENIES SOB AND CP. IV ACCESS IN THE LFA 20G SL. PATENT AND INTACT. ON 2L SATURATING ADEQUATELY. BED LOCKED IN THE LOWEST POSITION WITH SIDE RAILS UP X2. CALL LIGHT WITHIN REACH. WILL CONTINUE TO MONITOR, ASSESS AND EDUCATE THROUGHOUT SHIFT.
[2017-08-20] MEDS ORDERED: FUROSEMIDE 80 MG TABLET PO SCH (09:00)
[2017-08-20] MEDS ORDERED: POTASSIUM CHLORIDE 20 MEQ TAB.PRT.SR PO SCH (09:00)
[2017-08-20] MEDS: TAMSULOSIN 0.4 MG CAP.SR.24H PO SCH (09:23)
[2017-08-20] MEDS: SOTALOL HCL 80 MG TABLET PO SCH (09:24)
[2017-08-20 15:30] VITALS: BP 98/48
--- NOTE | 2017-08-20 15:30 | NUR ---
RN CLOSING NOTES (DISCHARGE) PATIENT DISCHARGED IN STABLE CONDITION. AOX4. NO SOB. NO CP. DENIES ANY PAIN. RESPIRATIONS EVEN AND UNLABORED. NO ACUTE DISTRESS. PT TO F/U WITH PCP IN 2WEEKS. PT TO CONTINUE HOME MEDICATIONS. ALL EXITCARE GIVEN. ALL DISCHARGE PAPER WORK SIGNED AND PATIENT EDUCATED. ALL NEEDS MET. ALL MEDS GIVEN APPROPRIATE. ALL BELONGING ACCOUNTED FOR.
== END 2017-08-20 15:30 | disposition home or self-care (01) | DRG 291 ==
LOC: ER 09:29 → TELE 10:36 → MED 08-19 16:20
PROVIDERS: ADMIT Internal Medicine; ATTEND Internal Medicine
DX: I11.0 Hypertensive heart disease with heart failure (principal); J96.21 Acute and chronic respiratory failure with hypoxia; D68.59 Other primary thrombophilia; Z68.42 Body mass index [BMI] 45.0-49.9, adult; J44.9 Chronic obstructive pulmonary disease, unspecified; I42.9 Cardiomyopathy, unspecified; Z95.810 Presence of automatic (implantable) cardiac defibrillator; Z95.1 Presence of aortocoronary bypass graft; E11.9 Type 2 diabetes mellitus without complications; E66.9 Obesity, unspecified; F41.9 Anxiety disorder, unspecified; E78.5 Hyperlipidemia, unspecified; I25.10 Atherosclerotic heart disease of native coronary artery without angina pectoris; I48.91 Unspecified atrial fibrillation; N40.0 Benign prostatic hyperplasia without lower urinary tract symptoms; Z79.84 Long term (current) use of oral hypoglycemic drugs; Z86.73 Personal history of transient ischemic attack (TIA), and cerebral infarction without residual deficits; Z87.891 Personal history of nicotine dependence; Z79.899 Other long term (current) drug therapy; K21.9 Gastro-esophageal reflux disease without esophagitis; M10.9 Gout, unspecified; G89.29 Other chronic pain; G47.33 Obstructive sleep apnea (adult) (pediatric); Z79.82 Long term (current) use of aspirin; I50.43 Acute on chronic combined systolic (congestive) and diastolic (congestive) heart failure
CPT/HCPCS: 36415; 71010-TC; 80048-TC; 80053-TC; 80061-TC; 80076-TC; 82962-TC; 83735-TC; 83880; 84100-TC; 84443-TC; 84484-TC; 85025-TC; 85730-TC; 87081-TC; A4606; J1650; J1815; J1940; Z7610

== ENCOUNTER 2019-02-01 22:27 | Inpatient (IN) | payer MEDICARE, BC ==
[~2019-02-01] VITALS: Ht 182.9 cm; Wt 112.9 kg
[~2019-02-01 22:27] MED LIST changes: +ALLO100T PO; -ALLO300T2 PO; +ASCO500T10 PO; +ASPI-1169 PO; -ASPI325T2 PO; -BISA-79 PO; -BUPR300T54 PO; -CARV3.12 PO; +CHOL100044 PO; -DIGO125T4 PO; +FURO20TA4 PO; -FURO80TA3 PO; -GABA400C PO; +HYDR-4354 PO; -LEVO125T PO; +LEVO150T8 PO; -LORA-980 PO; +METF-440 PO; -METF500T4 PO; -NITR0.4T6 SL; +OMEG1CAP PO; -OXYC-128 PO; -ROSU20TA PO; +SOTA120T PO; -SOTA80TA PO; -SPIR25TA4 PO
[2019-02-01] MEDS ORDERED: MORPHINE SULFATE INJ 2 MG/ML DISP.SYRIN IV ONE (22:30)
[2019-02-01] MEDS ORDERED: ONDANSETRON HCL/PF 4 MG/2 ML VIAL IVP ONE (22:30)
[2019-02-01] MEDS ORDERED: IV NS 0.9% 500 ML BAG IV ONE (22:30)
--- NOTE | 2019-02-01 22:45 | NUR ---
Pt BIBRA C/O SEVERE ABD PAIN THAT IS RADIATING TO BOTH SIDES LEFT & RIGHT. PER REPORT Pt ATE COTTAGE CHEESE EARLIER TODAY AND Pt IS LACTOSE INTOLERANT. Pt IS C/O NAUSEA, BUT NO -VOMITTING. +DIARRHEA. Pt IS AFEBRILE. Pt IS A/OX3, VERBAL, BUT IS RESIGHINI. Pt SEEN BY MD AT BEDSIDE. WILL CONTINUE TO MONITOR Pt's CONDITION.
[2019-02-01 22:50] LABS: BASOPHILS # (AUTO) 0.1 /CMM (0.0-0.2); BASOPHILS % (AUTO) 0.6 % (0.0-2.0); EOSINOPHILS % (AUTO) 0.3 % (0.0-6.0); HEMATOCRIT 37 % (39-51); LYMPHOCYTES # (AUTO) 0.7 /CMM (0.8-4.8); MEAN CORPUSCULAR HGB CONC 33 g/dl (31.0-36.0); MEAN CORPUSCULAR VOLUME 91 fL (80-96); MONOCYTES # (AUTO) 0.2 /CMM (0.1-1.30); MONOCYTES % (AUTO) 1.9 % (2.0-12.0); NEUTROPHILS % (AUTO) 92.2 % (43.0-81.0); PLATELET COUNT (AUTO) 194 /CMM (150-450); RED BLOOD CELL COUNT(AUTO) 4.01 MIL/uL (4.5-6.0)
[2019-02-01 22:59] LABS: CALCIUM, SERUM 9.9 mg/dL (8.5-10.1); CARBON DIOXIDE 23 mmol/L (21-32); CHLORIDE 98 mmol/L (98-107); CREATININE 1.6 mg/dL (0.6-1.3); GLUCOSE 176 mg/dL (74-106); POTASSIUM 4.7 mmol/L (3.5-5.1); SODIUM SERUM 133 mmol/L (136-145); UREA NITROGEN, BLOOD 38 mg/dL (7-18)
[2019-02-01 23:04] LABS: ALANINE AMINOTRANSFERASE 17 U/L (12-78); ALKALINE PHOSPHATASE 120 U/L (46-116); ASPARTATE AMINOTRANSFERASE 14 U/L (15-37); BILIRUBIN,DIRECT 0.2 mg/dL (0.0-0.2); BILIRUBIN,TOTAL 0.5 mg/dL (0.2-1.0); LIPASE 42 U/L (73-393); TOTAL PROTEIN, SERUM 8.1 g/dL (6.4-8.2)
[2019-02-01] MEDS ORDERED: ONDANSETRON HCL/PF 4 MG/2 ML VIAL ONE (23:09)
[2019-02-01] MEDS ORDERED: MORPHINE SULFATE INJ 4 MG/ML DISP.SYRIN ONE (23:10)
--- NOTE | 2019-02-01 23:26 | NUR ---
ULTRASOUND BEING DONE AT BEDSIDE
--- NOTE | 2019-02-01 23:26 | NUR ---
STARTED IV ACCESS ON LWRIST #20G ADMINISTERED ZOFRAN 4MG & MORPHINE 4MG VIA IV
--- NOTE | 2019-02-02 00:13 | NUR ---
PATIENT TAKEN FOR CT
--- NOTE | 2019-02-02 00:21 | NUR ---
Pt IS BACK IN ROOM FROM CT
[2019-02-02] MEDS ORDERED: PIPERACILLIN /TAZOBACTAM 3.375 G in IV D5W 50 ML IV ONE (01:00)
[2019-02-02] MEDS ORDERED: PIPERACILLIN /TAZOBACTAM 3.375 G VIAL IV ONE (01:05)
[2019-02-02] MEDS ORDERED: IV NS 0.9% 1,000 ML IV PRN (01:11)
[2019-02-02] MEDS ORDERED: MORPHINE SULFATE INJ 2 MG/ML DISP.SYRIN IV PRN (01:30)
[2019-02-02] MEDS ORDERED: Z GUARD REMEDY 2 OZ OINT TP PRN (01:30)
[2019-02-02] MEDS ORDERED: HYDROCODONE/APAP 5/325MG 1 EACH TABLET PO PRN (01:30)
[2019-02-02] MEDS ORDERED: MAG HYDROX/AL HYDROX/SIMETH 30 ML UDC PO PRN (01:30)
[2019-02-02] MEDS ORDERED: ZOLPIDEM TARTRATE 5 MG TABLET PO PRN (01:30)
[2019-02-02] MEDS ORDERED: ACETAMINOPHEN 325 MG TABLET PO PRN (01:30)
[2019-02-02] MEDS ORDERED: ONDANSETRON HCL/PF 4 MG/2 ML VIAL IVP PRN (01:30)
[2019-02-02] MEDS ORDERED: MAGNESIUM HYDROXIDE 30 ML UDC PO PRN (01:30)
--- NOTE | 2019-02-02 02:20 | NUR ---
ZOSYN 3.375G FINISHED.
--- NOTE | 2019-02-02 02:25 | NUR ---
ALL ORDERED MEDS GIVEN
--- NOTE | 2019-02-02 02:26 | NUR ---
REPORT GIVEN TO LAMONT DIAZ
[2019-02-02 02:30] VITALS: BP 114/70
[2019-02-02 02:40] VITALS: BP 114/70
[2019-02-02 02:45] VITALS: BP 114/70
--- NOTE | 2019-02-02 02:45 | NUR ---
RN NOTES ADMITTED A 83 Y/O MALE PATIENT WITH COMPLAINTS OF ABDOMINAL PAIN, TOLERABLE AT THIS TIME PER PATIENT VERBALIZATION, COMPLAINTS OF DIFFICULTY BREATHING, RT AT BEDSIDE DURING ASSESSMENT, O2 AT 2LPM VIA NASAL CANNULA TOLERATING WELL SATING 95% - 98%, INITIAL ASSESSMENT DONE, SKIN ASSESSMENT DONE, PATIENT REFUSED TO WEAR HOSPITAL GOWN, ORIENTED PATIENT TO UNIT AND USE OF CALL LIGHT, PATIENT IS HARD OF HEARING, ALL SAFETY MEASURES EMPHASIZED, ALL NEEDS ATTENDED, WILL MONITOR ACCORDINGLY.
[2019-02-02] MEDS ORDERED: PIPERACILLIN /TAZOBACTAM 4.5 G in IV D5W 50 ML IV SCH (06:00)
--- NOTE | 2019-02-02 07:46 | NUR ---
RN NOTES ALL NEEDS ATTENDED AND MET, PATIENT IS AWAKE AT THIS TIME, NON IN DISTRESS, KEPT COMFORTABLE, ENDORSED TO AM NURSE FOR CONTINUITY OF CARE.
--- NOTE | 2019-02-02 07:50 | NUR ---
MS RN RECEIVED ON BED, AWAKE,ALERT,ORIENTED X4,NOT IN ANY FORM OF DISTRESS, RESPIRATIONS EVEN AND UNLABORED, NO SOB NOTED, LUNGS ARE CLEAR,ABDOMEN SOFT,POSITIVE BOWEL SOUNDS, DENIES PAIN AT THIS TIME, ALL NEEDS ATTENDED.
[2019-02-02 08:00] VITALS: BP 98/58
[2019-02-02] MEDS ORDERED: TAMSULOSIN 0.4 MG CAP.SR.24H PO SCH (09:00)
[2019-02-02] MEDS ORDERED: METFORMIN 500 MG TABLET PO SCH (09:00)
[2019-02-02] MEDS ORDERED: ALLOPURINOL 100 MG TABLET PO SCH (09:00)
[2019-02-02] MEDS: SOTALOL HCL 80 MG TABLET PO SCH ×2 (09:00→17:44)
[2019-02-02] MEDS ORDERED: LEVOTHYROXINE SODIUM 75 MCG TABLET PO SCH (09:00)
[2019-02-02] MEDS ORDERED: FUROSEMIDE 20 MG TABLET PO SCH (09:00)
[2019-02-02] MEDS ORDERED: Medication Not On Formulary EA (Omega-3 Fatty Acids/Fish Oil (Fish Oil 1,000 Mg Capsule) PO SCH (09:00)
--- NOTE | 2019-02-02 09:00 | NUR ---
M/S RN NOTES AM MEDICATIONS NOT GIVEN, PATIENT ON NPO STATUS
[2019-02-02 09:17] LABS: MAGNESIUM 1.5 mg/dL (1.8-2.4); PHOSPHORUS 4.3 mg/dL (2.5-4.9)
[2019-02-02 09:57] LABS: THYROID STIMULATING HORMONE 0.301 uIU/mL (0.358-3.74)
[2019-02-02] MEDS: PIPERACILLIN /TAZOBACTAM 3.375 G in IV D5W 100 ML IV SCH ×2 (10:25→19:00)
--- NOTE | 2019-02-02 11:00 | NUR ---
MS RN REMAIN ON NPO, FOR HIDA SCAN TODAY.
[2019-02-02] MEDS ORDERED: WARF-68 PO ×2 (15:10)
--- NOTE | 2019-02-02 15:30 | NUR ---
MS RN CAME BACK FOR HIDA SCAN, WAITING FOR RESULT.
[2019-02-02 16:00] VITALS: BP 92/51
[2019-02-02] MEDS: ASCORBIC ACID 500 MG TABLET PO SCH (17:10)
[2019-02-02] MEDS: CHOLECALCIFEROL 1,000 UNIT TABLET (VIT D3) PO SCH (17:10)
[2019-02-02] MEDS: ASPIRIN 81 MG TAB.CHEW PO SCH ×2 (17:11→21:30)
[2019-02-02] MEDS ORDERED: Magnesium 1GM/D5W 100ML PREMIX 100 ML IV SCH (18:00)
[2019-02-02] MEDS ORDERED: DEXTROSE 50%-WATER 50 ML DISP.SYRIN IV PRN (18:00)
--- NOTE | 2019-02-02 18:30 | NUR ---
MS RN ON BED, NO DISTRESS NOTED,ALL NEEDS ATTENDED.
--- NOTE | 2019-02-02 19:30 | NUR ---
MS RN OPENING NOTES RECEIVED PATIENT SITTING UP IN BED, ALERT,ORIENTED X4. BREATHING EVEN AND UNLABORED. NOT IN ANY DISTRESS. IV ANTIBIOTIC INFUSING AT THIS TIME. CALL LIGHT WITHIN EASY REACH. BED IN LOW, LOCKED POSITION. WILL CONTINUE TO MONITOR ACCORDINGLY
--- NOTE | 2019-02-02 19:50 | NUR ---
RN NOTES Pharmacy called. Patient's INR 3.7. As per pharmacist, PERSONAL FINANCIAL ADVISOR Bria aware, to call Dr. Geiger if he wants to reverse it. Called Dr. Vigil. Awaiting callback for orders.
[2019-02-02 20:00] VITALS: BP 110/46
--- NOTE | 2019-02-02 20:32 | NUR ---
RN NOTES As per Dr. Geiger, "Just called CASE RESOLUTION SPECIALIST, told her to call bicycle rental clerk to take care of it because bicycle rental clerk may refuse to the procedure tomorrow."
[2019-02-02] MEDS: BLOOD SUGAR DIAGNOSTIC 1 EACH STRIP IN SCH (21:30)
[2019-02-02] MEDS: LISINOPRIL (5MG) 5 MG TABLET PO SCH (21:31)
[2019-02-02] MEDS: INSULIN REGULAR, HUMAN 100 UNIT/ML 3 ML VIAL SQ PRN (21:31)
--- NOTE | 2019-02-02 23:45 | NUR ---
RN NOTES Patient stated that he uses CPAP at home with settings 9.5. Patient also requesting for a breathing treatmen. Dr. Farfan notified. Telephone order of CPAP with above settings and Albuterol 2.5mg Q6H prn. Orders noted and carried out
[2019-02-03] VITALS (21 sets, daily range): BP systolic 93–115; BP diastolic 42–64
--- NOTE | 2019-02-03 00:11 | NUR ---
RN NOTES Patient for transfusion of plasma. Consent signed. Pre-vitals taken and recorded. BP-108/60, HR- 70, RR- 17, TEMP- 99.2f, SPO2-98%. Product verified and checked with another RN. Transfusion started. Will continue to monitor
--- NOTE | 2019-02-03 00:26 | NUR ---
RN NOTES Vital signs taken: BP- 94/54, HR- 70, RR- 18, TEMP- 99, SPO2-97%. No adverse reaction noted. Transfusion completed.
--- NOTE | 2019-02-03 01:02 | NUR ---
RN NOTES Pre-vitals taken and recorded. BP-107/60, HR- 69, RR- 18, TEMP- 99.2f, SPO2-98.5%. Frozen plasma verified and checked with another RN. Second bag of plasma started. Transfusion started by gravity. Will continue to monitor
--- NOTE | 2019-02-03 01:23 | NUR ---
RN NOTES Patient's transfusion ongoing. V/S taken and recorded. BP- 101/52, HR- 69, RR-18, Temp- 99, SPO2- 98%. No adverse reaction noted
[2019-02-03] MEDS: PIPERACILLIN /TAZOBACTAM 3.375 G in IV D5W 100 ML IV SCH ×3 (01:39→16:49)
--- NOTE | 2019-02-03 01:42 | NUR ---
RN NOTES Second bag of plasma transfused. No adverse reaction noted
--- NOTE | 2019-02-03 02:20 | NUR ---
RN NOTES Patient's plasma transfusion of 3rd bag ongoing. V/S checked and recorded. BP-101/45, HR- 69, RR-18, Temp- 99.1, SPO2- 98%. No adverse reaction noted. Will continue to monitor accordingly.
[2019-02-03] MEDS: ALBUTEROL FS 2.5 MG/0.5 ML VIAL.NEB NEB SCH ×4 (02:22→19:55)
--- NOTE | 2019-02-03 02:35 | NUR ---
RN NOTES Patient's transfusion ongoing. V/S taken and recorded. BP- 104/52, HR- 70, RR-18, Temp- 99.2, SPO2- 98%. No adverse reaction noted
--- NOTE | 2019-02-03 02:38 | NUR ---
RN NOTES Third bag of plasma transfused. No adverse reaction noted
--- NOTE | 2019-02-03 03:00 | NUR ---
RN NOTES As per RT Sanchez, patient refused to use the CPAP machine as there is no humidifier. He will have someone bring his own CPAP machine.
--- NOTE | 2019-02-03 03:22 | NUR ---
RN NOTES Pre-vitals taken and recorded. BP-98/54, HR- 70, RR- 18, TEMP- 99.1F, SPO2-97%. Frozen plasma verified and checked with another RN. Fourth bag of plasma started. Transfusion started by gravity. Will continue to monitor
--- NOTE | 2019-02-03 03:37 | NUR ---
RN NOTES Patient's transfusion ongoing. V/S taken and recorded. BP- 93/51, HR- 70, RR-18, Temp- 98.9, SPO2- 98%. No adverse reaction noted
--- NOTE | 2019-02-03 03:45 | NUR ---
RN NOTES Fourth bag of plasma transfused. Patient remain stable. Denied discomfort at this time. No adverse reaction noted. Will continue to monitor accordingly.
[2019-02-03] MEDS: BLOOD SUGAR DIAGNOSTIC 1 EACH STRIP IN SCH ×4 (06:39→21:32)
[2019-02-03] MEDS: INSULIN REGULAR, HUMAN 100 UNIT/ML 3 ML VIAL SQ PRN ×2 (06:40→21:38)
[2019-02-03 06:53] LABS: CHOLESTEROL 70 mg/dL (<200); CREATINE KINASE, TOTAL 102 U/L (39-308); HDL CHOLESTEROL 37 mg/dL (40-60); LDL 26 mg/dL (0-99); TRIGLYCERIDES 84 mg/dL (30-150)
--- NOTE | 2019-02-03 06:54 | NUR ---
RN CLOSING NOTES Patient in bed, alert, oriented x 4. Breathing even and unlabored. Not in any distress. No complaints as of this time. All needs attended to. All due medications given as ordered. Will endorse IRINEO to oncoming RN
[2019-02-03 07:12] LABS: ALANINE AMINOTRANSFERASE 15 U/L (12-78); ALBUMIN 3.3 g/dL (3.4-5.0); ALKALINE PHOSPHATASE 84 U/L (46-116); ASPARTATE AMINOTRANSFERASE 16 U/L (15-37); BILIRUBIN,TOTAL 0.7 mg/dL (0.2-1.0); CALCIUM, SERUM 9.7 mg/dL (8.5-10.1); CARBON DIOXIDE 22 mmol/L (21-32); CHLORIDE 99 mmol/L (98-107); CREATININE 1.7 mg/dL (0.6-1.3); GLUCOSE 141 mg/dL (74-106); MAGNESIUM 1.8 mg/dL (1.8-2.4); PHOSPHORUS 3.9 mg/dL (2.5-4.9); POTASSIUM 4.3 mmol/L (3.5-5.1); SODIUM SERUM 134 mmol/L (136-145); TOTAL PROTEIN, SERUM 7.3 g/dL (6.4-8.2); UREA NITROGEN, BLOOD 41 mg/dL (7-18)
[2019-02-03 07:16] LABS: BASOPHILS % (AUTO) 0.2 % (0.0-2.0); EOSINOPHILS % (AUTO) 0.1 % (0.0-6.0); HEMATOCRIT 31 % (39-51); HEMOGLOBIN 10.5 g/dL (13.5-17.5); LYMPHOCYTES # (AUTO) 0.7 /CMM (0.8-4.8); LYMPHOCYTES % (AUTO) 4.2 % (20.0-44.0); MEAN CORPUSCULAR HGB CONC 34 g/dl (31.0-36.0); MEAN CORPUSCULAR VOLUME 90 fL (80-96); MONOCYTES # (AUTO) 0.3 /CMM (0.1-1.30); MONOCYTES % (AUTO) 1.6 % (2.0-12.0); NEUTROPHILS % (AUTO) 93.9 % (43.0-81.0); PLATELET COUNT (AUTO) 153 /CMM (150-450); RED BLOOD CELL COUNT(AUTO) 3.41 MIL/uL (4.5-6.0)
--- NOTE | 2019-02-03 08:30 | NUR ---
MS/RN Labs Morning labs reviewed: -WBC 17 -H&H 10.5/31 -INR 2.29 -PT 23.1 -PTT 51.3
[2019-02-03] MEDS: SOTALOL HCL 80 MG TABLET PO SCH ×2 (08:49→16:48)
[2019-02-03] MEDS: CHOLECALCIFEROL 1,000 UNIT TABLET (VIT D3) PO SCH (08:50)
[2019-02-03] MEDS: ASCORBIC ACID 500 MG TABLET PO SCH (08:50)
[2019-02-03] MEDS: FUROSEMIDE 40 MG/4 ML VIAL IV SCH ×2 (08:59→12:32)
[2019-02-03] MEDS ORDERED: FUROSEMIDE 40 MG TABLET PO SCH (09:00)
[2019-02-03] MEDS ORDERED: PHYTONADIONE INJ 10 MG in IV D5W 50 ML IV ONE (09:00)
--- NOTE | 2019-02-03 09:00 | NUR ---
MS/RN S/B Dr Ma Seen by Dr Ma - due to vascular congestion present on chest x-ray, lasix 40mg X2 dosages ordered IVP.
--- NOTE | 2019-02-03 09:30 | NUR ---
MS/RN S/B Bria Anguiano MANUFACTURING SOFTWARE ENGINEER Seen by MANUFACTURING SOFTWARE ENGINEER - IV fluid held due to vascular congestion on chest x-ray. Vitamin K ordered and transfused, INR/PT to be rechecked in one hour. Awaiting CT guided drainage of gallbladder.
--- NOTE | 2019-02-03 13:03 | NUR ---
MS/RN Blood sugar Blood sugar at noon 156, coverage held due to patient being NPO.
[2019-02-03] MEDS: SOD FERRIC GLUC 125 MG in IV NS 0.9% 100 ML IV SCH (15:40)
--- NOTE | 2019-02-03 17:30 | NUR ---
MS/RN New orders New order given by Bria for patient to receive another four units of FFP this evening and level to be rechecked after completed.
--- NOTE | 2019-02-03 18:49 | NUR ---
MS/RN End note Patient remains in stable condition, all needs addressed. Call light within reach, patient aware that he will receive second transfusion this evening of FFP, consent form signed and placed in chart. Will endorse to nightshift.
--- NOTE | 2019-02-03 19:45 | NUR ---
RN MS OPENING NOTES RECEIVED PATIENT IN BED AWAKE, ALERT AND ORIENTED X3, VERBALLY RESPONSIVE, ABLE TO MAKE NEEDS KNOWN. BREATHING EVEN AND UNLABORED. NO SOB NOTED. ON 2L OXYGEN VIA NC. TOLERATING WELL. NO COMPLAINTS OF PAIN OR DISCOMFORT. NO FACIAL GRIMACING. IV ON LEFT FOREARM G#20 INTACT AND PATENT. SKIN DRY AND WARM TO TOUCH. AFEBRILE. ALL OTHER NEEDS ATTENDED TO .SAFETY MEASURES IN PLACE. CALL LIGHT WITHIN REACH. WILL CONTINUE TO MONITOR.
[2019-02-03] MEDS: LISINOPRIL (5MG) 5 MG TABLET PO SCH (21:24)
[2019-02-03] MEDS: ASPIRIN 81 MG TAB.CHEW PO SCH (21:32)
[2019-02-03] MEDS: TAMSULOSIN 0.4 MG CAP.SR.24H PO SCH (21:34)
[2019-02-03] MEDS: ALLOPURINOL 100 MG TABLET PO SCH (21:35)
--- NOTE | 2019-02-03 22:15 | NUR ---
CJ MS NOTES PATIENT STARTED ON FIRST UNIT OF PLASMA. WILL CONTINUE TO MONITOR.
[2019-02-04] VITALS (9 sets, daily range): BP systolic 100–125; BP diastolic 54–74
[2019-02-04] MEDS: ALBUTEROL FS 2.5 MG/0.5 ML VIAL.NEB NEB SCH ×4 (01:30→20:22)
[2019-02-04] MEDS: PIPERACILLIN /TAZOBACTAM 3.375 G in IV D5W 100 ML IV SCH ×3 (01:53→16:50)
--- NOTE | 2019-02-04 03:05 | NUR ---
RN MS NOTES PATIENT TOLERATED 4 UNITS OF FPP WELL. NO ADVERSE REACTIONS. WILL CONTINUE TO MONITOR.
[2019-02-04] MEDS: BLOOD SUGAR DIAGNOSTIC 1 EACH STRIP IN SCH ×4 (06:39→21:35)
[2019-02-04] MEDS: INSULIN REGULAR, HUMAN 100 UNIT/ML 3 ML VIAL SQ PRN ×2 (06:39→17:34)
[2019-02-04 06:41] LABS: BASOPHILS % (AUTO) 0.2 % (0.0-2.0); HEMATOCRIT 28 % (39-51); HEMOGLOBIN 9.6 g/dL (13.5-17.5); LYMPHOCYTES # (AUTO) 0.7 /CMM (0.8-4.8); LYMPHOCYTES % (AUTO) 5.3 % (20.0-44.0); MEAN CORPUSCULAR HGB CONC 34 g/dl (31.0-36.0); MEAN CORPUSCULAR VOLUME 89 fL (80-96); MONOCYTES # (AUTO) 0.3 /CMM (0.1-1.30); MONOCYTES % (AUTO) 2.6 % (2.0-12.0); NEUTROPHILS # (AUTO) 11.8 /CMM (1.8-8.9); NEUTROPHILS % (AUTO) 90.9 % (43.0-81.0); PLATELET COUNT (AUTO) 135 /CMM (150-450); RED BLOOD CELL COUNT(AUTO) 3.14 MIL/uL (4.5-6.0)
[2019-02-04 06:55] LABS: ALANINE AMINOTRANSFERASE 33 U/L (12-78); ALBUMIN 3.2 g/dL (3.4-5.0); ALKALINE PHOSPHATASE 105 U/L (46-116); ASPARTATE AMINOTRANSFERASE 33 U/L (15-37); BILIRUBIN,TOTAL 0.9 mg/dL (0.2-1.0); CALCIUM, SERUM 9.3 mg/dL (8.5-10.1); CARBON DIOXIDE 24 mmol/L (21-32); CHLORIDE 97 mmol/L (98-107); CREATININE 1.8 mg/dL (0.6-1.3); GLUCOSE 137 mg/dL (74-106); MAGNESIUM 1.8 mg/dL (1.8-2.4); PHOSPHORUS 3.6 mg/dL (2.5-4.9); POTASSIUM 3.3 mmol/L (3.5-5.1); SODIUM SERUM 134 mmol/L (136-145); TOTAL PROTEIN, SERUM 7.5 g/dL (6.4-8.2); UREA NITROGEN, BLOOD 49 mg/dL (7-18)
--- NOTE | 2019-02-04 07:03 | NUR ---
RN MS CLOSING NOTES PATIENT RESTING IN BED. NO ACUTE CHANGES THROUGHOUT SHIFT. NO ADVERSE REACTIONS FROM PLASMA INFUSIONS. BREATHING EVEN AND UNLABORED. NO SOB NOTED. ON 2L OXYGEN VIA NC. TOLERATING WELL. NO COMPLAINTS OF PAIN OR DISCOMFORT. NO FACIAL GRIMACING. IV ON LEFT FOREARM G#20 INTACT AND PATENT. SKIN DRY AND WARM TO TOUCH. AFEBRILE. ALL OTHER NEEDS ATTENDED TO .SAFETY MEASURES IN PLACE. CALL LIGHT WITHIN REACH. WILL ENDORSE TO ONCOMING NURSE FOR IRINEO.
[2019-02-04] MEDS: LEVOTHYROXINE SODIUM 125 MCG TABLET PO SCH (07:30)
--- NOTE | 2019-02-04 08:07 | NUR ---
MSRN. PT NPO. PT RECEIVED AWAKE AND RESTING IN BED, A&0X3. PT REPORTS FEELING VERY TIRED R/T OVERNIGHT INFUSIONS DISTURBING SLEEP AND NOT USING CPAP. PT WITH O2 VA NC AT 2LPM AND SPO2 94%. PT DENIES PAIN AT THIS TIME. PT WITH IVCX2, IVC AT R WRIST INTACT AND IVC AT LEFT FA INTACT, BOTH SALINE FLUSH PATENT. PT BED IN LOWEST LOCKED POSITION WITH HANDRAILSX3, HOB ELEVATED AND CALL SANDS WITHIN REACH. PT BRIEFED ON TODAY'S POC AND DENIES FUTHER NEEDS AT THIS TIME.
[2019-02-04] MEDS: ASCORBIC ACID 500 MG TABLET PO SCH (09:00)
[2019-02-04] MEDS: CHOLECALCIFEROL 1,000 UNIT TABLET (VIT D3) PO SCH (09:00)
[2019-02-04] MEDS: SOTALOL HCL 80 MG TABLET PO SCH ×2 (09:00→16:47)
[2019-02-04] MEDS ORDERED: POTASSIUM CHLORIDE 20 MEQ TAB.PRT.SR PO SCH (11:00)
[2019-02-04] MEDS ORDERED: POTASSIUM CHLORIDE 10 MEQ/50 ML PREMIXED IVPB FOR PERIPHERAL LINE IV ONE (11:00)
--- NOTE | 2019-02-04 11:00 | NUR ---
MSRN. MD HOLBROOK ORDERING CHANGE TO MEDS. CANCEL PO K REPLACEMENT AND ORDER 20MEQ IV. ORDERS PLACED.
[2019-02-04 11:11] LABS: *SPE ALBUMIN 3.4 g/dL (2.9-4.4); *SPE ALPHA-1-GLOBULIN 0.4 g/dL (0.0-0.4); *SPE BETA GLOBULIN 0.9 g/dL (0.7-1.3); *SPE GLOBULIN, TOTAL 3.5 g/dL (2.2-3.9); *SPE M-SPIKE Not Observed g/dL (Not Observed); *SPEGAMMA GLOBULIN 1.2 g/dL (0.4-1.8)
[2019-02-04] MEDS: FUROSEMIDE 100 MG/10 ML VIAL IV SCH ×2 (11:13→14:28)
[2019-02-04] MEDS: POTASSIUM CL. PREMIX PERIPHER. 50 ML IV SCH ×2 (11:13→12:27)
[2019-02-04] MEDS ORDERED: NALOXONE PREFILLED SYRINGE 2 MG/2 ML SYRINGE IV ONE (12:00)
[2019-02-04] MEDS ORDERED: FENTANYL PF 250MCG/5ML AMPUL IV ONE (12:00)
[2019-02-04] MEDS ORDERED: MIDAZOLAM HCL 5MG/ML VIAL 25 MG/5 ML VIAL IV ONE (12:00)
[2019-02-04 12:10] LABS: PTH, INTACT 29 pg/mL (15-65)
--- NOTE | 2019-02-04 14:02 | NUR ---
PT REPORTING MODERATE PAIN TO LEFT LITTLE FINGER AND ELBOW. IV K WITH NS INFUSING AT LEFT WRIST, IV SITE AND AND LINE PATENT, NO COMPLAINT OF PAIN AT IV SITE. INFUSION SWAPPED TO RIGHT ARM IVC.
--- NOTE | 2019-02-04 14:46 | NUR ---
PT TO CT.
[2019-02-04] MEDS ORDERED: IV NS 0.9% 250 ML IV ONE (15:11)
[2019-02-04] MEDS ORDERED: LIDOCAINE HCL/PF 1% 30 ML SDV ONE (15:35)
[2019-02-04] MEDS: SOD FERRIC GLUC 125 MG in IV NS 0.9% 100 ML IV SCH (17:29)
--- NOTE | 2019-02-04 18:41 | NUR ---
MSRN. PT REMAINS AWAKE AND RESTING IN BED, A&0X4. PT WITH O2 VA NC AT 2.5LPM AND SPO2 WNL. PT DENIES PAIN AT THIS TIME. PT WITH IVCX2, IVC AT R FA INTACT AND OPERATIONAL. IVC AT LEFT FA SL. PT WITH ACCORDIAN DRAIN WITH 200CC SEROUS FLUIDS EMPTIED. PT BED IN LOWEST LOCKED POSITION WITH HANDRAILSX3, HOB ELEVATED AND CALL SANDS WITHIN REACH. WILL ENDORSE TO NIGHT NURSE TA BEDSIDE FOR IRINEO.
--- NOTE | 2019-02-04 19:52 | NUR ---
RN OPENING NOTES PT IN BED RESTING. NO S/S OF RESP DISTRESS/SOB. NO C/O PAIN AT THIS TIME. NC IN PLACE WITH O2 AT 2L. A/OX4, PT IS HARD OF HEARING. S/P CT GUIDED DRAINAGE OF GALLBLADDER, ACCORDIAN DRAIN IN PLACE WITH 200 CC OF DRAINAGE ON LAST AM SHIFT. IV ACCESS LOCATED ON RFA (20G) AND LFA (20G) BOTH CURRENTLY SL. SAFETY MEASURES IN PLACE, CALL LIGHT WITHIN REACH. WILL CONTINUE TO MONITOR.
[2019-02-04] MEDS: ASPIRIN 81 MG TAB.CHEW PO SCH (21:30)
[2019-02-04] MEDS: ALLOPURINOL 100 MG TABLET PO SCH (21:30)
[2019-02-04] MEDS: TAMSULOSIN 0.4 MG CAP.SR.24H PO SCH (21:30)
[2019-02-04] MEDS: LISINOPRIL (5MG) 5 MG TABLET PO SCH (22:00)
--- NOTE | 2019-02-04 23:04 | NUR ---
RT NOTE LATE ENTRY AT 2039 PT REFUSED CPAP AT THIS TIME. NO RESPIRATORY DISTRESS NOTED AT THIS TIME. CJ SHEPHERD NOTIFIED AND AWARE.
[2019-02-05] MEDS: ALBUTEROL FS 2.5 MG/0.5 ML VIAL.NEB NEB SCH ×4 (00:49→19:34)
[2019-02-05] MEDS: PIPERACILLIN /TAZOBACTAM 3.375 G in IV D5W 100 ML IV SCH ×3 (01:25→17:45)
--- NOTE | 2019-02-05 06:15 | NUR ---
RN CLOSING NOTE PT IN ROOM RESTING. AWAKE AND ALERT. A/OX 4 . NO S/S OF RESP DISTRESS. NO C/O PAIN AT THIS TIME. ALL PT NEEDS ANTICIPATED AND MET. SAFETY MEASURES IN PLACE, CALL LIGHT WITHIN REACH. WILL ENDORSE TO DAY SHIFT FOR IRINEO.
[2019-02-05 06:43] LABS: BASOPHILS % (AUTO) 0.4 % (0.0-2.0); EOSINOPHILS % (AUTO) 1.8 % (0.0-6.0); HEMATOCRIT 29 % (39-51); HEMOGLOBIN 10.1 g/dL (13.5-17.5); LYMPHOCYTES # (AUTO) 0.9 /CMM (0.8-4.8); LYMPHOCYTES % (AUTO) 8.7 % (20.0-44.0); MEAN CORPUSCULAR HGB CONC 35 g/dl (31.0-36.0); MEAN CORPUSCULAR VOLUME 89 fL (80-96); MONOCYTES # (AUTO) 0.5 /CMM (0.1-1.30); NEUTROPHILS # (AUTO) 8.2 /CMM (1.8-8.9); NEUTROPHILS % (AUTO) 84.1 % (43.0-81.0); PLATELET COUNT (AUTO) 151 /CMM (150-450); RED BLOOD CELL COUNT(AUTO) 3.27 MIL/uL (4.5-6.0); WHITE BLOOD COUNT (AUTO) 9.8 K/uL (4.3-11.0)
[2019-02-05 06:49] LABS: ALANINE AMINOTRANSFERASE 113 U/L (12-78); ALKALINE PHOSPHATASE 146 U/L (46-116); ASPARTATE AMINOTRANSFERASE 102 U/L (15-37); BILIRUBIN,TOTAL 1.1 mg/dL (0.2-1.0); CALCIUM, SERUM 9.4 mg/dL (8.5-10.1); CARBON DIOXIDE 26 mmol/L (21-32); CHLORIDE 97 mmol/L (98-107); CREATININE 1.7 mg/dL (0.6-1.3); GLUCOSE 138 mg/dL (74-106); MAGNESIUM 1.8 mg/dL (1.8-2.4); PHOSPHORUS 3.3 mg/dL (2.5-4.9); POTASSIUM 2.9 mmol/L (3.5-5.1); SODIUM SERUM 136 mmol/L (136-145); TOTAL PROTEIN, SERUM 7.5 g/dL (6.4-8.2); UREA NITROGEN, BLOOD 47 mg/dL (7-18)
--- NOTE | 2019-02-05 07:30 | NUR ---
MS RN Opening Notes Patient asleep, resting in bed. Semi-Fowlers position. Alert and oriented x4, able to make needs known. Minimal communication in German. No complaints of shortness of breath or pain at this time. Respirations even and unlabored on room air, no acute distress noted. Mild coughing noted. Peripheral IV to the left AC 20 gauge, intact, patent and infusing fluids as ordered. Updated patient on current plan of care and safety measures. Safety and fall precautions in place: bed in lowest and locked position, side rails up x2, bed alarm on, call light and personal possessions within reach. Will continue to monitor and intervene as needed. Addendum: 02/05/19 at 0759 by RILEY SANCHEZ RN New note added for patient, this entry is for another patient.
--- NOTE | 2019-02-05 07:30 | NUR ---
MS RN Opening Notes Received patient asleep, resting in bed. Semi-Fowlers position. Alert and oriented x4, able to make needs known. No complaints of shortness of breath or pain at this time. Respirations even and unlabored on room air, no acute distress noted. Peripheral IV to the right forearm 20 gauge and left forearm 20 gauge, intact, patent and saline locked. Accordion post-op drain noted to the right abdomen, intact, patent and draining. Bag noted with drainage amount. Updated patient on current plan of care and safety measures. Safety and fall precautions in place: bed in lowest and locked position, side rails up x2, bed alarm on, call light and personal possessions within reach. Reminded patient of safety measures, verbalized understanding. Room well lit. Front wheeled walker at the bedside. Will continue to monitor and intervene as needed.
[2019-02-05 08:00] VITALS: BP 105/64
[2019-02-05] MEDS ORDERED: POTASSIUM CHLORIDE 20 MEQ TAB.PRT.SR PO ONE ×2 (08:00→09:00)
[2019-02-05] MEDS: BLOOD SUGAR DIAGNOSTIC 1 EACH STRIP IN SCH ×4 (08:04→21:30)
[2019-02-05] MEDS: ASCORBIC ACID 500 MG TABLET PO SCH (09:19)
[2019-02-05] MEDS: CHOLECALCIFEROL 1,000 UNIT TABLET (VIT D3) PO SCH (09:19)
[2019-02-05] MEDS: LEVOTHYROXINE SODIUM 125 MCG TABLET PO SCH (09:21)
[2019-02-05] MEDS: SOTALOL HCL 80 MG TABLET PO SCH ×2 (09:22→17:45)
[2019-02-05] MEDS: SOD FERRIC GLUC 125 MG in IV NS 0.9% 100 ML IV SCH (14:00)
[2019-02-05 16:00] VITALS: BP 120/68
[2019-02-05 16:11] LABS: ABG BASE EXCESS 2.3 mmol/L; ABG OXYGEN SATURATION 95.3 % (92.0-98.5); ABG PH 7.457 (7.350-7.450); ABG PO2 80.2 mmHg (75.0-100.0); AaDO2 89.1 mmHg; COHb 0.9 % (0.5-1.5); MetHb 0.2 % (0.0-1.5); O2Hb 94.3 % (94.0-97.0); SITE, ABG Right Radial; VENT MODE, BG NC 3L
[2019-02-05 16:38] LABS: CALCIUM, SERUM 9.1 mg/dL (8.5-10.1); CARBON DIOXIDE 27 mmol/L (21-32); CHLORIDE 95 mmol/L (98-107); CREATININE 1.7 mg/dL (0.6-1.3); GLUCOSE 177 mg/dL (74-106); POTASSIUM 3.5 mmol/L (3.5-5.1); SODIUM SERUM 133 mmol/L (136-145); UREA NITROGEN, BLOOD 43 mg/dL (7-18)
--- NOTE | 2019-02-05 19:05 | NUR ---
RN MS OPENING NOTES RECEIVED PATIENT IN BED AWAKE ALERT AND ORIENTED X4 , VERBALLY RESPONSIVE, ABLE TO MAKE NEEDS KNOWN, ON 2L VIA NC, RESPIRATIONS EVEN AND UNLABORED WITH EQUAL RISE AND FALL OF CHEST, DENIES ANY PAIN OR DISCOMFORT AT THIS TIME, ACCORDIAN DRAIN PRESENT AND INTACT NOTED BROWN COLOR DRAINAGE IN BAG AT 400ML LETICIA, WILL CONTINUE TO MONITOR, URINAL AT BEDSIDE AND OFFERED, IV SITE TO RIGHT FA #20G AND LEFT FA#20G INTACT AND PATENT, NO REDNESS, NO INFILTRATION PRESENT, ORIENTED TO STAFF AND CALL LIGHT AND KEPT WITHIN REACH, SAFETY PRECAUTIONS IN PLACE, LOW BED AND LOCKED, BED ALARM IN PLACE, PATIENT MADE AWARE OF NPO STATUS AT MIDNIGHT FOR SCHEDULED PROCEDURE 02/06/19. LAPAROSCOPIC CHOLECYSTECTOMY, POSSIBLE OPEN, WILL OBTAIN CONSENTS, REPOSITIONING OFFERED AND FLUIDS REMAINS COMFORTABLE AT THIS TIME, WILL CONTINUE TO MONITOR AND ADDRESS NEEDS.
--- NOTE | 2019-02-05 19:30 | NUR ---
MS RN Closing Notes Patient currently awake, resting in bed. Semi-Fowlers position. Alert and oriented x4, able to make needs known. No complaints of shortness of breath or pain at this time. Respirations even and unlabored on 3 L oxygen via nasal cannula, no acute distress noted. Peripheral IV to the right forearm 20 gauge and left forearm 20 gauge, intact, patent and saline locked. Accordion post-op drain noted to the right abdomen, intact, patent and draining; 100 mL output this shift. Bag noted with drainage amount at 0700 and 1900. Updated patient on current plan of care and safety measures. Safety and fall precautions in place: bed in lowest and locked position, side rails up x2, bed alarm on, call light and personal possessions within reach. Reminded patient of safety measures, verbalized understanding. Room well lit. Front wheeled walker at the bedside. No acute events this shift. Patient to be NPO at midnight. Endorsed completion of pre-op checklist and consent form to overnight cashier RN. Lap vs. open cholecystectomy on 02/06/[address] Geiger. Endorsed care to overnight cashier RN Kely at this time.
[2019-02-05 20:00] VITALS: BP 100/62
[2019-02-05] MEDS: TAMSULOSIN 0.4 MG CAP.SR.24H PO SCH (21:22)
[2019-02-05] MEDS: ASPIRIN 81 MG TAB.CHEW PO SCH (21:22)
[2019-02-05] MEDS: LISINOPRIL (5MG) 5 MG TABLET PO SCH (21:23)
[2019-02-05] MEDS: ALLOPURINOL 100 MG TABLET PO SCH (21:24)
[2019-02-05] MEDS: INSULIN REGULAR, HUMAN 100 UNIT/ML 3 ML VIAL SQ PRN (21:34)
--- NOTE | 2019-02-05 22:00 | NUR ---
RN MS NOTES LISINOPRIL HELD DUE TO DECREASED B/P100/62,71
[2019-02-06] VITALS (11 sets, daily range): BP systolic 102–130; BP diastolic 63–81
[2019-02-06] MEDS: PIPERACILLIN /TAZOBACTAM 3.375 G in IV D5W 100 ML IV SCH ×3 (00:22→17:00)
[2019-02-06] MEDS: ALBUTEROL FS 2.5 MG/0.5 ML VIAL.NEB NEB SCH ×4 (00:43→19:25)
[2019-02-06] MEDS: BLOOD SUGAR DIAGNOSTIC 1 EACH STRIP IN SCH ×4 (06:30→22:33)
--- NOTE | 2019-02-06 06:44 | NUR ---
RN MS CLOSING NOTES PATIENT ABLE TO MAKE NEEDS KNOWN, AWAKE ALERT AND ORIENTED X 4 ON 2L VIA NC, RESPIRATIONS EVEN AND UNLABORED WITH EQUAL RISE AND FALL OF CHEST, DENIES ANY PAIN OR DISCOMFORT AT THIS TIME, ACCORDIAN DRAIN PRESENT AND INTACT NOTED BROWN COLOR DRAINAGE IN BAG AT 500ML LETICIA,100ML OUTPUT, SEROSANGUIENOUS BROWN COLOR , DRESSING REMAINS CLEAN AND INTACT URINAL AT BEDSIDE AND OFFERED, IV SITE TO RIGHT FA #20G AND LEFT FA#20G INTACT AND PATENT, NO REDNESS, NO INFILTRATION PRESENT, CALL LIGHT KEPT WITHIN REACH, SAFETY PRECAUTIONS IN PLACE, LOW BED AND LOCKED, BED ALARM IN PLACE, PATIENT HAS BEEN NPO STATUS SINCE MIDNIGHT FOR SCHEDULED PROCEDURE 02/06/19 AT 1400. LAPAROSCOPIC CHOLECYSTECTOMY, POSSIBLE OPEN, CONSENTS OBTAINED, CHECKLIST STARTED WILL ENDORSE TO COMPLETE, REPOSITIONING OFFERED REMAINS COMFORTABLE AT THIS TIME, WILL CONTINUE TO MONITOR AND AND ENDORSE TO NEXT SHIFT.
--- NOTE | 2019-02-06 07:25 | NUR ---
MS RN NOTES PATIENT RECEIVED RESTING INSIDE ROOM. AWAKE, ALERT AND ORIENTED X 4, VERBALLY RESPONSIVE AND RESPONDS TO VERBAL AND TACTILE STIMULI. NO ACUTE DISTRESS AT THIS TIME. PATIENT CALM AND RELAXED. ACCORDIAN DRAIN PRESENT AND INTACT, NOTED WITH BROWN-COLORED DRAINAGE IN BAG AT 500ML LETICIA, SEROSANGUIENOUS BROWN COLOR , DRESSING REMAINS CLEAN AND INTACT. PATIENT NPO STATUS. FOR LAP VS OPEN CHOLECYSTECTOMY TODAY. PATIENT AWARE AND VERBALIZED UNDERSTANDING. WILL CONTINUE TO MONITOR. BED LOCKED AND IN LOW POSITION. BILATERAL UPPER SIDE RAILS UP AND LOCKED. CALL LIGHT WITHIN EASY REACH
[2019-02-06] MEDS: LEVOTHYROXINE SODIUM 125 MCG TABLET PO SCH (07:30)
[2019-02-06 07:52] LABS: HEMATOCRIT 29 % (39-51); HEMOGLOBIN 10.1 g/dL (13.5-17.5); LYMPHOCYTES % (AUTO) 9.5 % (20.0-44.0); MEAN CORPUSCULAR HGB CONC 35 g/dl (31.0-36.0); MEAN CORPUSCULAR VOLUME 89 fL (80-96); MONOCYTES % (AUTO) 6.6 % (2.0-12.0); NEUTROPHILS % (AUTO) 80.3 % (43.0-81.0); PLATELET COUNT (AUTO) 167 /CMM (150-450); RED BLOOD CELL COUNT(AUTO) 3.29 MIL/uL (4.5-6.0); WHITE BLOOD COUNT (AUTO) 7.8 K/uL (4.3-11.0)
[2019-02-06 07:53] LABS: BASOPHILS % (AUTO) 0.4 % (0.0-2.0); EOSINOPHILS % (AUTO) 3.2 % (0.0-6.0); LYMPHOCYTES # (AUTO) 0.7 /CMM (0.8-4.8); MONOCYTES # (AUTO) 0.5 /CMM (0.1-1.30); NEUTROPHILS # (AUTO) 6.3 /CMM (1.8-8.9)
[2019-02-06 08:10] LABS: ABG BASE EXCESS 5.4 mmol/L; ABG PCO2 36.9 mmHg (35.0-45.0); ABG PH 7.508 (7.350-7.450); ABG PO2 91.8 mmHg (75.0-100.0); AaDO2 64.3 mmHg; COHb 0.7 % (0.5-1.5); MetHb 0.4 % (0.0-1.5); O2Hb 95.9 % (94.0-97.0); SITE, ABG Left Brachial; VENT MODE, BG NASAL CANNULA
[2019-02-06 08:19] LABS: ALANINE AMINOTRANSFERASE 135 U/L (12-78); ALBUMIN 2.8 g/dL (3.4-5.0); ALKALINE PHOSPHATASE 166 U/L (46-116); ASPARTATE AMINOTRANSFERASE 95 U/L (15-37); BILIRUBIN,DIRECT 0.5 mg/dL (0.0-0.2); BILIRUBIN,TOTAL 1.1 mg/dL (0.2-1.0); CALCIUM, SERUM 9.7 mg/dL (8.5-10.1); CARBON DIOXIDE 28 mmol/L (21-32); CHLORIDE 98 mmol/L (98-107); CREATININE 1.4 mg/dL (0.6-1.3); GLUCOSE 144 mg/dL (74-106); POTASSIUM 3.6 mmol/L (3.5-5.1); SODIUM SERUM 136 mmol/L (136-145); TOTAL PROTEIN, SERUM 7.4 g/dL (6.4-8.2); UREA NITROGEN, BLOOD 35 mg/dL (7-18)
[2019-02-06] MEDS: CHOLECALCIFEROL 1,000 UNIT TABLET (VIT D3) PO SCH (09:00)
[2019-02-06] MEDS: GUAIFENESIN LA 600 MG TABLET.SA PO SCH ×2 (09:00→21:00)
[2019-02-06] MEDS: ASCORBIC ACID 500 MG TABLET PO SCH (09:00)
[2019-02-06] MEDS: SOTALOL HCL 80 MG TABLET PO SCH ×2 (09:00→17:00)
[2019-02-06] MEDS: INSULIN REGULAR, HUMAN 100 UNIT/ML 3 ML VIAL SQ PRN ×2 (12:20→22:36)
[2019-02-06] MEDS: SOD FERRIC GLUC 125 MG in IV NS 0.9% 100 ML IV SCH (15:04)
--- NOTE | 2019-02-06 15:30 | NUR ---
MS RN NOTES PATIENT TAKEN BY OR STAFF FOR SURGERY. 2 YELLOW RINGS TAKEN FROM PATIENT. GIVEN TO CHARGE NURSE FOR SAFEKEEPING, STORED AT NURSING STATION SAFE
[2019-02-06] MEDS ORDERED: LIDOCAINE HCL/PF 1% 30 ML SDV ONE (16:25)
[2019-02-06] MEDS ORDERED: FENTANYL PF 250MCG/5ML AMPUL ONE (16:42)
[2019-02-06] MEDS ORDERED: MIDAZOLAM HCL 2 MG/2ML VIAL ONE (16:42)
[2019-02-06] MEDS ORDERED: FENTANYL PF 100MCG/2ML AMPUL ONE (16:43)
[2019-02-06] MEDS ORDERED: METOCLOPRAMIDE HCL 10 MG/2 ML VIAL ONE (16:43)
[2019-02-06] MEDS ORDERED: ROCURONIUM BROMIDE 50 MG/5 ML ONE (16:44)
[2019-02-06] MEDS ORDERED: FAMOTIDINE/PF INJ 20 MG/2 ML VIAL IV ONE (16:44)
--- NOTE | 2019-02-06 18:42 | NUR ---
MS RN NOTES PLACED CALL TO OR AND SPOKE TO YAS CORONA. PATIENT STILL HAVING PROCEDURE. WILL ENDORSE TO INCOMING SHIFT FOR IRINEO.
[2019-02-06] MEDS ORDERED: CELLULOSE,OXIDIZED 1 EA PACK MC ONE (18:43)
[2019-02-06] MEDS ORDERED: PROPOFOL 100 ML ONE (20:10)
[2019-02-06] MEDS: PROPOFOL 100 ML IV PRN (20:58)
--- NOTE | 2019-02-06 21:04 | NUR ---
@1950 RECEIVED PT FROM O.R. PT IS AWAKE, INTUBATED WITH 8.0 ETT SECURED AT 23CM AT THE LIP. Chelsea SERVIN AND RN'S AT BEDSIDE. PLACED ON 840 VENT, ETT SECURED VIA ANCHOR FAST. VENT ALARMS SET AND AUDIBLE. AMBU BAG AT BEDSIDE. VENT PLUGGED INTO RED OUTLET. WILL CONTINUE TO MONITOR.
--- NOTE | 2019-02-06 21:09 | NUR ---
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 RECEIVED THE PT FROM ER S/P LAP CHOLECYSTECTOMY,WITH RT SIDE DANIEL PLACEMENT AND LYSIS OF ADHESIONS. PT ORALLY INTUBATED. 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 SAT 98%. NO ACUTE DISTRESS NOTED. PT IS AGITATED, BALDO SOFT WRIST RESTRAINT INITIATED, FC PATENT. BALDO HAND 20G. DIPRIVAN STARTED, WILL CONTINUE TO MONITOR VITALS.
[2019-02-06] MEDS: LISINOPRIL (5MG) 5 MG TABLET PO SCH (22:00)
[2019-02-06] MEDS: ASPIRIN 81 MG TAB.CHEW PO SCH (22:00)
[2019-02-06] MEDS: TAMSULOSIN 0.4 MG CAP.SR.24H PO SCH (22:00)
[2019-02-06] MEDS: ALLOPURINOL 100 MG TABLET PO SCH (22:00)
--- NOTE | 2019-02-06 22:13 | NUR ---
DNA ANALYST. RECEIVED THE PT FROM OR. REPORT GIVEN OR NURSE REARDON. RT HAND CHAIN HOOK COLOR WITH PT.
[2019-02-06 22:38] LABS: ABG BASE EXCESS 0.7 mmol/L; ABG OXYGEN SATURATION 98.8 % (92.0-98.5); ABG PCO2 44.9 mmHg (35.0-45.0); ABG PH 7.382 (7.350-7.450); ABG PO2 307.5 mmHg (75.0-100.0); AaDO2 143.3 mmHg; COHb 0.4 % (0.5-1.5); MetHb 0.6 % (0.0-1.5); O2Hb 97.8 % (94.0-97.0); PEEP,BG 5 cm H2O; SITE, ABG Right Radial
--- NOTE | 2019-02-06 22:38 | NUR ---
ABG DONE. NOTIFIED RN WITH THE RESULT. FIO2 TITRATED.
[2019-02-06] MEDS ORDERED: ONDANSETRON HCL/PF 4 MG/2 ML VIAL IV PRN (23:30)
[2019-02-06] MEDS ORDERED: LEVOFLOXACIN 750 MG /D5W 150ML 150 ML IV ONE (23:30)
[2019-02-06] MEDS ORDERED: METRONIDAZOLE 500MG/ NS 100ML 100 ML IV ONE (23:30)
[2019-02-06] MEDS: METRONIDAZOLE 500MG/ NS 100ML 500 MG in PREMIX 1 EA IV SCH (23:33)
[2019-02-06] MEDS: LEVOFLOXACIN 750 MG /D5W 150ML 750 MG in PREMIX 1 EA IV SCH (23:34)
[2019-02-07] VITALS (45 sets, daily range): BP systolic 86–125; BP diastolic 45–74
[2019-02-07] MEDS ORDERED: IV D5/ 0.9% NACL 1,000 ML IV SCH
[2019-02-07] MEDS: PIPERACILLIN /TAZOBACTAM 3.375 G in IV D5W 100 ML IV SCH ×3 (00:54→17:12)
[2019-02-07] MEDS: PROPOFOL 100 ML IV PRN ×2 (01:51→07:05)
[2019-02-07] MEDS: ALBUTEROL FS 2.5 MG/0.5 ML VIAL.NEB NEB SCH ×4 (02:17→19:12)
--- NOTE | 2019-02-07 03:10 | NUR ---
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 AM CARE, ORAL CARE, BED BATH GIVEN. LINEN CHANGED. REMAINING SAME VENT SETTING TOLERATED WELL. SAT 98%IV RT AND LT HAND. 30G. IVF D5NS 40ML/H,DIPRIVAN 20MCG/KG/MIN,FC PATENT. URINE DRAINING. SURGICAL WOUND DRESSING INTACT, DRESSING DRY AND CLEAN, RT SIDE DANIEL INTACT. HOB ELEVATED. BALDO SOFT WRIST RESTRAINT CHECKED AND RELEASED. NO INJURY OR REDNESS NOTED. AFEBRILE. WILL CONTINUE TO MONITOR VITALS.
[2019-02-07 04:40] LABS: BASOPHILS % (AUTO) 0.1 % (0.0-2.0); HEMATOCRIT 28 % (39-51); HEMOGLOBIN 9.5 g/dL (13.5-17.5); LYMPHOCYTES # (AUTO) 0.4 /CMM (0.8-4.8); LYMPHOCYTES % (AUTO) 5.3 % (20.0-44.0); MEAN CORPUSCULAR HGB CONC 34 g/dl (31.0-36.0); MEAN CORPUSCULAR VOLUME 90 fL (80-96); MONOCYTES # (AUTO) 0.5 /CMM (0.1-1.30); MONOCYTES % (AUTO) 6.9 % (2.0-12.0); NEUTROPHILS # (AUTO) 6.7 /CMM (1.8-8.9); NEUTROPHILS % (AUTO) 87.7 % (43.0-81.0); PLATELET COUNT (AUTO) 159 /CMM (150-450); RED BLOOD CELL COUNT(AUTO) 3.13 MIL/uL (4.5-6.0); WHITE BLOOD COUNT (AUTO) 7.7 K/uL (4.3-11.0)
[2019-02-07 05:18] LABS: ALANINE AMINOTRANSFERASE 103 U/L (12-78); ALBUMIN 2.4 g/dL (3.4-5.0); ALKALINE PHOSPHATASE 146 U/L (46-116); ASPARTATE AMINOTRANSFERASE 53 U/L (15-37); B-TYPE NATRIURETIC PEPTIDE 10717 PG/ML (0-125); BILIRUBIN,DIRECT 0.5 mg/dL (0.0-0.2); BILIRUBIN,TOTAL 0.7 mg/dL (0.2-1.0); CARBON DIOXIDE 27 mmol/L (21-32); CHLORIDE 101 mmol/L (98-107); CREATININE 1.3 mg/dL (0.6-1.3); GLUCOSE 188 mg/dL (74-106); POTASSIUM 3.7 mmol/L (3.5-5.1); SODIUM SERUM 138 mmol/L (136-145); TOTAL PROTEIN, SERUM 6.7 g/dL (6.4-8.2); UREA NITROGEN, BLOOD 30 mg/dL (7-18)
[2019-02-07] MEDS: LEVOTHYROXINE SODIUM 125 MCG TABLET PO SCH (07:30)
--- NOTE | 2019-02-07 07:33 | NUR ---
RT NOTE RECEIVED PT MECHANICALLY VENTILATED VIA 8.0 ETT 23 CM AT LIP. CUFF INFLATED. ETT SECURE. VENTILATOR SETTINGS FOLLOW AC 16 550 50% +5. ALARMS SET PER PROTOCOL AND AUDIBLE. VENT PLUGGED IN TO RED OUTLET. AMBU BAG AT BED SIDE. NO DISTRESS NOTED AT MOMENT. Addendum: 02/07/19 at 0734 by ELLEN AMBROCIO RT Amended: Links added.
[2019-02-07 07:45] LABS: ABG BASE EXCESS 4.7 mmol/L; ABG OXYGEN SATURATION 98.3 % (92.0-98.5); ABG PCO2 37.6 mmHg (35.0-45.0); ABG PH 7.493 (7.350-7.450); ABG PO2 178.9 mmHg (75.0-100.0); COHb 0.2 % (0.5-1.5); MetHb 0.5 % (0.0-1.5); O2Hb 97.6 % (94.0-97.0); PEEP,BG 5 cm H2O; SITE, ABG Right Radial; VENT MODE, BG AC 16 550 40% +5; VT, ABG 550 mL
[2019-02-07] MEDS: HYDROMORPHONE INJ 0.5 MG/0.5 ML SYRINGE IV PRN ×4 (07:56→23:40)
[2019-02-07] MEDS: BLOOD SUGAR DIAGNOSTIC 1 EACH STRIP IN SCH ×4 (08:08→22:16)
[2019-02-07] MEDS: METRONIDAZOLE 500MG/ NS 100ML 500 MG in PREMIX 1 EA IV SCH ×3 (08:09→22:38)
[2019-02-07] MEDS: INSULIN REGULAR, HUMAN 100 UNIT/ML 3 ML VIAL SQ PRN ×4 (08:14→22:10)
--- NOTE | 2019-02-07 08:28 | NUR ---
RN NOTES TOOK PATIENT'S 2 RINGS FROM [facility] AND BROUGHT TO ICU. PLACED 1 RING ON PATIENT'S LEFT 4TH FINGER, 1 RING ON PATIENT'S RIGHT 5TH FINGER. SECURED BOTH RINGS WITH TAPE. ARTHUR CORONA AT BEDSIDE AWARE AND WITNESSED
--- NOTE | 2019-02-07 08:30 | NUR ---
pt weaned off the propofol. calm and cooperative able to follow commands. Pt updated and educated on process of extubation he is able to follow instructions and indicated understanding.
[2019-02-07] MEDS: ASCORBIC ACID 500 MG TABLET PO SCH (09:00)
[2019-02-07] MEDS ORDERED: IV D5/ 0.9% NACL 1,000 ML IV PRN (09:00)
[2019-02-07] MEDS: GUAIFENESIN LA 600 MG TABLET.SA PO SCH ×2 (09:00→21:54)
[2019-02-07] MEDS: CHOLECALCIFEROL 1,000 UNIT TABLET (VIT D3) PO SCH (09:00)
[2019-02-07] MEDS: SOTALOL HCL 80 MG TABLET PO SCH ×2 (09:00→17:19)
--- NOTE | 2019-02-07 11:45 | NUR ---
RT NOTE PT PLACED ON CPAP MODE PER MD CONNORS ORDER. PT AWAKE AND ALERT. NO DISTRESS NOTED. RN NOTIFIED. Addendum: 02/07/19 at 1146 by ELLEN AMBROCIO RT Amended: Links added.
[2019-02-07 12:42] LABS: ABG BASE EXCESS 3.2 mmol/L; ABG OXYGEN SATURATION 98.4 % (92.0-98.5); ABG PCO2 39.6 mmHg (35.0-45.0); ABG PH 7.456 (7.350-7.450); ABG PO2 197.7 mmHg (75.0-100.0); COHb 0.3 % (0.5-1.5); MetHb 0.4 % (0.0-1.5); O2Hb 97.7 % (94.0-97.0); SITE, ABG Right Radial; VENT MODE, BG CPAP 5 PS 10
--- NOTE | 2019-02-07 12:54 | NUR ---
RT NOTE PT EXTUBATED PER MD CONNORS ORDER. PT AWAKE AND ALERT. NO DISTRESS NOTED. PT PLACED ON NC AT 3L WITH HUMIDIFIER. RN NOTIFIED. Addendum: 02/07/19 at 1255 by ELLEN AMBROCIO RT Amended: Links added.
--- NOTE | 2019-02-07 15:00 | NUR ---
PT ABLE TO TOLERATE CLEAR LIPIDS ON TO ORDER FULL LIQUID CA DR LOVING. Addendum: 02/07/19 at 2033 by ARTHUR SANDERS RN able to tolerate clear liquid diet
[2019-02-07] MEDS: SOD FERRIC GLUC 125 MG in IV NS 0.9% 100 ML IV SCH (15:13)
[2019-02-07] MEDS ORDERED: PANTOPRAZOLE 40 MG VIAL IV SCH (16:00)
--- NOTE | 2019-02-07 17:00 | NUR ---
PT UP TO THE CHAIR FOR 30 MIN. TOLERATED SITTING UP WELL. NOW BACK TO BED. VSS MEDICATED FOR PAIN 05/12
--- NOTE | 2019-02-07 20:30 | NUR ---
PT PLACED ON BIPAP PER MD ORDER BIPAP@NOC DUE TO PT STATING THAT HE USED A NOCTURNAL CPAP AT HOME. SETTINGS PER PT COMFORT. PT PLACED ON THE UNDER THE NOSE MASK C. PT APPEARS COMFORTABLE WITH NO COMPLAINTS AT THIS TIME. BIPAP SETTINGS S/T 4 15/06 30%. Addendum: 02/07/19 at 2305 by COLETTE PRESTON RT Amended: Links added.
[2019-02-07] MEDS: ALLOPURINOL 100 MG TABLET PO SCH (21:52)
[2019-02-07] MEDS: LISINOPRIL (5MG) 5 MG TABLET PO SCH (21:54)
[2019-02-07] MEDS: ASPIRIN 81 MG TAB.CHEW PO SCH (21:54)
[2019-02-07] MEDS: TAMSULOSIN 0.4 MG CAP.SR.24H PO SCH (21:55)
[2019-02-08] VITALS (19 sets, daily range): BP systolic 76–115; BP diastolic 29–71
[2019-02-08] MEDS: LEVOFLOXACIN 750 MG /D5W 150ML 750 MG in PREMIX 1 EA IV SCH ×2 (00:26→22:33)
[2019-02-08] MEDS: PIPERACILLIN /TAZOBACTAM 3.375 G in IV D5W 100 ML IV SCH ×3 (01:08→17:19)
[2019-02-08] MEDS: ALBUTEROL FS 2.5 MG/0.5 ML VIAL.NEB NEB SCH ×6 (01:30→20:35)
--- NOTE | 2019-02-08 02:04 | NUR ---
BREATHING TX GIVEN @ 204 AM VITAL SIGN STABLE, HEART RATE 70. RN NAY NOTIFIED
[2019-02-08 04:55] LABS: BASOPHILS % (AUTO) 0.5 % (0.0-2.0); EOSINOPHILS % (AUTO) 2.7 % (0.0-6.0); HEMATOCRIT 26 % (39-51); LYMPHOCYTES # (AUTO) 0.9 /CMM (0.8-4.8); LYMPHOCYTES % (AUTO) 13.3 % (20.0-44.0); MEAN CORPUSCULAR HGB CONC 34 g/dl (31.0-36.0); MEAN CORPUSCULAR VOLUME 92 fL (80-96); MONOCYTES # (AUTO) 0.6 /CMM (0.1-1.30); MONOCYTES % (AUTO) 8.6 % (2.0-12.0); NEUTROPHILS # (AUTO) 4.9 /CMM (1.8-8.9); NEUTROPHILS % (AUTO) 74.9 % (43.0-81.0); PLATELET COUNT (AUTO) 168 /CMM (150-450); RED BLOOD CELL COUNT(AUTO) 2.87 MIL/uL (4.5-6.0); WHITE BLOOD COUNT (AUTO) 6.5 K/uL (4.3-11.0)
[2019-02-08 05:41] LABS: ALANINE AMINOTRANSFERASE 69 U/L (12-78); ALBUMIN 2.4 g/dL (3.4-5.0); ALKALINE PHOSPHATASE 145 U/L (46-116); ASPARTATE AMINOTRANSFERASE 27 U/L (15-37); BILIRUBIN,TOTAL 0.6 mg/dL (0.2-1.0); CALCIUM, SERUM 8.9 mg/dL (8.5-10.1); CARBON DIOXIDE 27 mmol/L (21-32); CHLORIDE 100 mmol/L (98-107); CREATININE 1.3 mg/dL (0.6-1.3); GLUCOSE 138 mg/dL (74-106); PHOSPHORUS 2.6 mg/dL (2.5-4.9); POTASSIUM 3.6 mmol/L (3.5-5.1); SODIUM SERUM 134 mmol/L (136-145); TOTAL PROTEIN, SERUM 6.6 g/dL (6.4-8.2); UREA NITROGEN, BLOOD 23 mg/dL (7-18)
[2019-02-08 05:43] LABS: ALBUMIN 2.4 g/dL (3.4-5.0); BILIRUBIN,DIRECT 0.3 mg/dL (0.0-0.2); BILIRUBIN,TOTAL 0.6 mg/dL (0.2-1.0); TOTAL PROTEIN, SERUM 6.7 g/dL (6.4-8.2)
--- NOTE | 2019-02-08 07:31 | NUR ---
RN NOTES RECEIVED PATIENT AWAKE IN BED. NO DISTRESS NOTED. BREATHING EVEN AND UNLABORED. ON O2 AT 2LPM VIA NASAL CANNULA WELL TOLERATED, CHANGED TO BIPAP FROM 9PM TO 6AM, TOLERATED WELL. ALERT AND ORIENTED. VERBALLY ABLE TO COMMUNICATE NEEDS. NO COMPLAINT OF PAIN OR DISCOMFORT. DANIEL DRAIN IN PLACE, DRAINED 140CC, FC PATENT AND INTACT, DRAINING CLEAR YELLOW WITH NO FOUL ODOR. KEPT CLEAN AND DRY. ENDORSED TO NEXT SHIFT FOR CONTINUITY OF CARE.
--- NOTE | 2019-02-08 08:00 | NUR ---
ICU/RN AM SHIFT INITIAL NOTES RECEIVED PT AWAKE, ALERT, LYING IN BED, PT ARCHNESS FROM SURGICAL SITE, BUT NO ACUTE CHANGE OF CONDITION. PT ON HUMIDIFIED O2 3L VIA N/C SATURATING @ 99%, LUNG SOUNDS DIMINISHED. RESPIRATIONS EVEN & UNLABORED. ON TELE V-PACING, HR 70. WITH ON GOING IV INFUSION OF D5NS @ 40CC/HR, IV SITES PATENT WITH NO S/S OF INFECTION. ALBA CATHETER INTACT WITH YELLOW URINE OUTPUT AND DANIEL INTACT NOTED WITH MINIMAL SEROSANGUINEOUS OUTPUT. PT IS COMFORTABLE, SCHEDULED AM MEDS TO BE GIVEN. CL WITHIN REACHED AND SAFETY MAINTAINED. ON GOING MONITORING.
[2019-02-08] MEDS: LEVOTHYROXINE SODIUM 125 MCG TABLET PO SCH (08:12)
[2019-02-08] MEDS: METRONIDAZOLE 500MG/ NS 100ML 500 MG in PREMIX 1 EA IV SCH (08:12)
[2019-02-08] MEDS: BLOOD SUGAR DIAGNOSTIC 1 EACH STRIP IN SCH ×4 (08:12→21:24)
[2019-02-08] MEDS: PANTOPRAZOLE 40 MG/PACK PACK PO SCH (08:12)
[2019-02-08] MEDS: GUAIFENESIN LA 600 MG TABLET.SA PO SCH ×2 (08:13→21:12)
[2019-02-08] MEDS: ASCORBIC ACID 500 MG TABLET PO SCH (08:13)
[2019-02-08] MEDS: CHOLECALCIFEROL 1,000 UNIT TABLET (VIT D3) PO SCH (08:13)
[2019-02-08] MEDS: SOTALOL HCL 80 MG TABLET PO SCH ×2 (09:00→17:00)
--- NOTE | 2019-02-08 09:00 | NUR ---
ICU/RN DECREASED BLOOD PRESSURE PT SITTING DOWN NOTED A DECREASED IN BLOOD PRESSURE (86/29, HR 74), BP RE-CHECKED, PT DENIES DIZZINESS OR ANY OTHER SYMPTOMS, CHARGE NURSE MADE AWARE. ON GOING MONITORING.
--- NOTE | 2019-02-08 09:25 | NUR ---
ICU/RN ROUNDS - DR. CLOUD PT SEEN & EXAMINED PT BY DR. CLOUD. WITH VERBAL ORDER RECEIVED THAT PT IS PERMITTED TO USE HIS OWN C-PAP AT NIGHT. ORDER NOTED AND CARRIED.
--- NOTE | 2019-02-08 10:37 | NUR ---
ICU/RN PHYSICAL THERAPY - EVAL PT SEEN BY PHYSICAL THERAPIST FOR AN EVALUATION, PT REFUSED AND SAID TO POSTPONED IT FOR TOMORROW.
--- NOTE | 2019-02-08 11:30 | NUR ---
ICU/RN REPORT TO [facility] - 327 #2 REPORT GIVEN TO NURSE PADILLA FOR PT TO BE DOWNGRADED TO MEDSURG UNIT.
[2019-02-08 12:06] LABS: ABG BASE EXCESS 3.6 mmol/L; ABG OXYGEN SATURATION 96.9 % (92.0-98.5); ABG PCO2 40.3 mmHg (35.0-45.0); ABG PH 7.456 (7.350-7.450); ABG PO2 104.5 mmHg (75.0-100.0); AaDO2 47.6 mmHg; MetHb 0.8 % (0.0-1.5); O2Hb 96.1 % (94.0-97.0); SITE, ABG Right Radial; VENT MODE, BG 2L NC
--- NOTE | 2019-02-08 12:10 | NUR ---
M/S TOWEL CABINET REPAIRER ADMISSION NOTES PATIENT IS A 83 Y/O MALE TRANSFERRED TO [facility] SURG ROOM 327 BED 2 FROM ICU VIA GURNEY ACCOMPANIED BY 2 STAFF WITH PRIMARY DIAGNOSIS OF S/P CHOLECYSTECTOMY. PATIENT A/O X4 AND ABLE TO MAKE NEEDS KNOWN, IMPAIRED IN HEARING WITH NO DEVICE PLACED. RESPIRATION EVEN AND NON LABORED WITH NO ACUTE RESPIRATORY DISTRESS, ON OXYGEN AT 3LPM VIA NASAL CANNULA AND ABLE TO TOLERATE WELL. LUNGS CLEARED BILATERALLY UPON AUSCULTATION. ABDOMEN SOFT AND NON DISTENDED WITH ACTIVE BOWEL SOUNDS TO ALL QUADRANTS. PATIENT DENIES PAIN AND DISCOMFORT UPON ASSESSMENT. SKIN WARM TO TOUCH WITH LEFT LATERAL ABDOMEN INCISION DUE TO SURGERY, DANIEL DRAIN PRESENT. PATIENT ON ZOSYN RUNNING AT 25ML/HR WITH IV SITE AT LEFT FOREARM GAUGE 20 WITH NO S/SX OF INFILTRATION, ANOTHER SITE AT RIGHT WRIST WITH GAUGE 20 PATENT IN FLUSHING.ALL CONCERNS ATTENDED, PLACED CALL LIGHT WITHIN REACH TO ENSURE SAFETY, WILL CONTINUE TO EVALUATE CARE.
--- NOTE | 2019-02-08 12:40 | NUR ---
M/S RN NOTES ASSESSED PATIENT DANIEL DRAINAGE INFLATED (NO NEGATIVE PRESSURE FOR SUCTIONING), OBSERVED DRESSING SOAKED WITH SEROSANGUINOUS DRAINAGE, WITH TEGADERM AND MEPILEX. DEFFLATED THE DANIEL DRAIN TO ASSESS PATENCY AND CREATE NEGATIVE PRESSURE FOR DRAINAGE BUT NOTED BULB NOT DEFLATING. CHANGED DRESSING TO FURTHER CHECK THE DRAINAGE OF DANIEL, BULB PLACED WITH PAPER TAPE AROUND TO KEEP NEGATIVE PRESSURE. CALLED TASHA FROM ICU AND STATED THAT DANIEL HAS JOHN LIKE THAT, SHE CHANGED PATIENT'S DRESSING BEFORE TRANSFERRING TO MED SURG. WILL CONTINUE TO EVALUATE DANIEL DRAINAGE AND REFER TO MD NEEDED
[2019-02-08] MEDS: INSULIN REGULAR, HUMAN 100 UNIT/ML 3 ML VIAL SQ PRN ×2 (13:27→21:28)
[2019-02-08] MEDS: METRONIDAZOLE 500 MG TABLET PO SCH ×2 (15:07→21:12)
--- NOTE | 2019-02-08 16:53 | NUR ---
M/S RN DR. LOVING PAGED REGARDING PATIENT'S DANIEL DRAINAGE AND WILL SEE PATIENT TODAY. DRESSING CHANGED X2 AT THIS TIME. WILL CONTINUE TO EVALUATE CARE
--- NOTE | 2019-02-08 19:05 | NUR ---
MS CJ OPENING NOTES: RECEIVED PT ON 3LPM VIA NC AND IS TOLERATING WELL. PT A/OX4. PT HAS ALBA CATH AND IS ATTACHED TO DRAINAGE BAG WITH YELLOW URINE DRAINING. PT HAS IV ON L FOREARM #20G AND IS PATENT AND INTACT. CURRENTLY H/L. PT ALSO HAS IV ON R WRIST #20G AND IS PATENT AND INTACT. CURRENTLY H/L WELL. PT HAS 3 INCISION IN ABDOMINAL AREA. PT HAS DANIEL DRAIN ON RIGHT LOWER AB DRAINING SANGUINEOUS FLUID. DRESSING KEPT CLEAN AND DRY. BILATERAL SCD PUMPS IN PLACE. BED KEPT IN LOW, LOCKED POSITION, AND SIDE RAILS X 2UP. WILL CONTINUE TO MONITOR PT.
--- NOTE | 2019-02-08 19:30 | NUR ---
M/S RN CLOSING NOTES PATIENT A/O X 4 AND ABLE TO MAKE NEEDS KNOWN, RESPONSIVE TO ALL STIMULI. RESPIRATION EVEN AND NON LABORED WITH NO ACUTE RESPIRATORY DISTRESS, ON OXYGEN AT 3LPM VIA NASAL CANNULA AND ABLE TO TOLERATE WELL. ABDOMEN SOFT AND NON DISTENDED WITH ACTIVE BOWEL SOUNDS TO ALL QUADRANTS. PATIENT DENIES PAIN AND DISCOMFORT UPON ASSESSMENT. SKIN WARM TO TOUCH WITH LEFT LATERAL ABDOMEN INCISION DUE TO SURGERY, DANIEL DRAIN PRESENT WITH SEROSANGUINOUS DISCHARGE, DRESSING CHANGED TWICE. NO SIGNS AND SYMPTOMS OF INFECTION AT INCISION SITE. PATIENT REMAIN AFEBRILE AND VITAL SIGNS WNL. PATIENT ON ZOSYN RUNNING AT 25ML/HR WITH IV SITE AT LEFT FOREARM GAUGE 20 WITH NO S/SX OF INFILTRATION, ANOTHER SITE AT RIGHT WRIST WITH GAUGE 20 PATENT IN FLUSHING.ALL CONCERNS ATTENDED, PLACED CALL LIGHT WITHIN REACH TO ENSURE SAFETY. ENDORSED PATIENT CARE TO NEXT SHIFT.
[2019-02-08] MEDS: TAMSULOSIN 0.4 MG CAP.SR.24H PO SCH (21:12)
[2019-02-08] MEDS: ASPIRIN 81 MG TAB.CHEW PO SCH (21:12)
[2019-02-08] MEDS: ALLOPURINOL 100 MG TABLET PO SCH (21:13)
[2019-02-08] MEDS: LISINOPRIL (5MG) 5 MG TABLET PO SCH (21:30)
--- NOTE | 2019-02-08 21:33 | NUR ---
MS RN NOTES: 3 UNITS OF INSULIN WAS ADMINISTERED FOR BLOOD SUGAR OF 164. ORANGE JUICE WAS ADMINISTERED. WILL CONTINUE TO MONITOR.
[2019-02-09] MEDS: PIPERACILLIN /TAZOBACTAM 3.375 G in IV D5W 100 ML IV SCH ×2 (00:03→11:22)
[2019-02-09] MEDS: ALBUTEROL FS 2.5 MG/0.5 ML VIAL.NEB NEB SCH ×4 (02:08→20:21)
[2019-02-09] MEDS: METRONIDAZOLE 500 MG TABLET PO SCH ×4 (03:02→21:32)
--- NOTE | 2019-02-09 05:59 | NUR ---
MS RN NOTES: PT REQUESTING FOR SCD PUMPS TO BE REMOVED AT THIS TIME HE IS HAVING DISCOMFORT. EXPLAINED TO PT RISKS AND BENEFITS AND SAID HE WOULD LIKE TO BE RELIEVED SOME TIME FOR NOW.
[2019-02-09] MEDS: BLOOD SUGAR DIAGNOSTIC 1 EACH STRIP IN SCH ×4 (06:32→22:18)
[2019-02-09] MEDS: INSULIN REGULAR, HUMAN 100 UNIT/ML 3 ML VIAL SQ PRN ×3 (06:33→22:27)
--- NOTE | 2019-02-09 07:08 | NUR ---
MS RN CLOSING NOTES: ALL NEEDS WERE ATTENDED AND ANTICIPATED FOR. PT ON 3LPM VIA NC AND IS TOLERATING WELL. PT DOES NOT WANT TO BE ON SCD PUMPS AT THIS TIME. BED KEPT IN LOW, LOCKED POSITION, AND SIDE RAILS X 2UP. IVS REMAINS INTACT. PT HAS ALBA CATH AND IS ATTACHED TO DRAINAGE BAG WITH YELLOW URINE DRAINING. OUTPUT WAS 2,000ML. BED ALARM ACTIVATED. BED KEPT IN LOW, LOCKED POSITION, AND SIDE RAILS X 2UP. WILL ENDORSE TO AM NURSE FOR IRINEO.
[2019-02-09 08:00] VITALS: BP 130/59
--- NOTE | 2019-02-09 08:00 | NUR ---
MS RN RECEIVED ON BED, AWAKE,ALERT,ORIENTED X4,NOT IN ANY FORM OF DISTRESS, RESPIRATIONS EVEN AND UNLABORED,NO SOB NOTED.LUNGS ARE CLEAR,ABDOMEN SOFT,POSITIVE BOWEL SOUNDS, DENIES PAIN AT THIS TIME,S/P LAP YANETH, W/ INCISIONS,CLEAN AND DRY, DANIEL DRAIN W/ PINKISH DRAINAGE,DENIES PAIN AT THIS TIME, ALBA TO GRAVITY W/ YELLOWISH URINE COLOR,ALL NEEDS ATTENDED.
[2019-02-09 08:06] LABS: BASOPHILS # (AUTO) 0.1 /CMM (0.0-0.2); BASOPHILS % (AUTO) 0.8 % (0.0-2.0); EOSINOPHILS % (AUTO) 3.8 % (0.0-6.0); HEMATOCRIT 27 % (39-51); HEMOGLOBIN 9.6 g/dL (13.5-17.5); LYMPHOCYTES # (AUTO) 0.9 /CMM (0.8-4.8); LYMPHOCYTES % (AUTO) 15.4 % (20.0-44.0); MEAN CORPUSCULAR HGB CONC 35 g/dl (31.0-36.0); MEAN CORPUSCULAR VOLUME 89 fL (80-96); MONOCYTES # (AUTO) 0.4 /CMM (0.1-1.30); MONOCYTES % (AUTO) 6.2 % (2.0-12.0); NEUTROPHILS # (AUTO) 4.5 /CMM (1.8-8.9); NEUTROPHILS % (AUTO) 73.8 % (43.0-81.0); PLATELET COUNT (AUTO) 175 /CMM (150-450); RED BLOOD CELL COUNT(AUTO) 3.08 MIL/uL (4.5-6.0); WHITE BLOOD COUNT (AUTO) 6.1 K/uL (4.3-11.0)
[2019-02-09 08:19] LABS: ALANINE AMINOTRANSFERASE 43 U/L (12-78); ALBUMIN 2.3 g/dL (3.4-5.0); ALKALINE PHOSPHATASE 128 U/L (46-116); ASPARTATE AMINOTRANSFERASE 18 U/L (15-37); BILIRUBIN,DIRECT 0.2 mg/dL (0.0-0.2); BILIRUBIN,TOTAL 0.5 mg/dL (0.2-1.0); CALCIUM, SERUM 9.1 mg/dL (8.5-10.1); CARBON DIOXIDE 28 mmol/L (21-32); CHLORIDE 102 mmol/L (98-107); CREATININE 1.1 mg/dL (0.6-1.3); GLUCOSE 120 mg/dL (74-106); MAGNESIUM 1.9 mg/dL (1.8-2.4); PHOSPHORUS 2.5 mg/dL (2.5-4.9); POTASSIUM 3.6 mmol/L (3.5-5.1); SODIUM SERUM 138 mmol/L (136-145); TOTAL PROTEIN, SERUM 6.1 g/dL (6.4-8.2); UREA NITROGEN, BLOOD 18 mg/dL (7-18)
[2019-02-09] MEDS: SOTALOL HCL 80 MG TABLET PO SCH ×2 (09:00→17:19)
[2019-02-09] MEDS ORDERED: Magnesium 1 GM/2 ML VIAL IV ONE (09:00)
[2019-02-09 09:04] LABS: BAND % (MANUAL) 3 % (0.0-5.0); EOSINOPHILS % (MANUAL) 4 % (0-4); LYMPHOCYTES % (MANUAL) 17 % (16-48); MONOCYTES % (MANUAL) 2 % (0-11.0); MYELOCYTES % 2 % (0-0); NEUTROPHILS % (MANUAL) 72 (42-76)
--- NOTE | 2019-02-09 09:30 | NUR ---
ms rn was seen by , removed julieta drain,all needs attended.
--- NOTE | 2019-02-09 09:40 | NUR ---
ms pozo breakfast served,due meds given,tolerated well.
[2019-02-09] MEDS: PANTOPRAZOLE 40 MG/PACK PACK PO SCH (10:30)
[2019-02-09] MEDS: CHOLECALCIFEROL 1,000 UNIT TABLET (VIT D3) PO SCH (10:30)
[2019-02-09] MEDS: ASCORBIC ACID 500 MG TABLET PO SCH (10:30)
[2019-02-09] MEDS: Magnesium 1GM/D5W 100ML PREMIX 100 ML IV SCH ×2 (10:34→12:40)
[2019-02-09] MEDS: GUAIFENESIN LA 600 MG TABLET.SA PO SCH ×2 (10:34→21:33)
[2019-02-09] MEDS: LEVOTHYROXINE SODIUM 125 MCG TABLET PO SCH (10:34)
--- NOTE | 2019-02-09 12:00 | NUR ---
ms rn bs-[id number] - held coverage, patient doesnt want to eat lunch.
[2019-02-09] MEDS: SOD FERRIC GLUC 125 MG in IV NS 0.9% 100 ML IV SCH (15:39)
[2019-02-09 16:00] VITALS: BP 129/67
[2019-02-09] MEDS: WARFARIN SODIUM 2 MG TABLET PO SCH (17:01)
--- NOTE | 2019-02-09 18:00 | NUR ---
ms pozo bs - 145 - 2 units of regular insulin given sq.
--- NOTE | 2019-02-09 18:28 | NUR ---
ms rn on bed, no distress noted.
--- NOTE | 2019-02-09 19:31 | NUR ---
MS/RN OPENING NOTES RECEIVED PATIENT IN BED,AWAKE, ALERT X3, ABLE TO MAKE SOUNDS AND RESPOND WITH A NOD , DENIES PAIN, NO GRIMACE OR GUARDING, SKIN WARM TO TOUCH, WITH ALBA CATHETER DRAINING YELLOW COLORED URINE,WITH ABDOMINAL INCISION, S/P DANIEL DRAIN REMOVED, ON FULL LIQUID DIET, WITH LFA 20 GAUGE. WILL MONITOR AND KEEP COMFORTABLE, BED LOCKED, CALL LIGHTS WITHIN REACH, RESPIRATIONS EVEN AND UNLABORED, PALE LOOKING.
[2019-02-09 19:58] VITALS: BP 138/75
[2019-02-09 20:00] VITALS: BP 138/75
[2019-02-09] MEDS: LISINOPRIL (5MG) 5 MG TABLET PO SCH (21:32)
[2019-02-09] MEDS: ASPIRIN 81 MG TAB.CHEW PO SCH (21:32)
[2019-02-09] MEDS: ALLOPURINOL 100 MG TABLET PO SCH (21:32)
[2019-02-09] MEDS: TAMSULOSIN 0.4 MG CAP.SR.24H PO SCH (21:43)
[2019-02-09] MEDS ORDERED: LEVOFLOXACIN (750 MG) 750 MG TABLET PO SCH (22:00)
[2019-02-10] MEDS: ALBUTEROL FS 2.5 MG/0.5 ML VIAL.NEB NEB SCH ×4 (00:48→19:30)
[2019-02-10] MEDS: METRONIDAZOLE 500 MG TABLET PO SCH ×3 (04:04→15:22)
[2019-02-10] MEDS: BLOOD SUGAR DIAGNOSTIC 1 EACH STRIP IN SCH ×3 (06:11→17:27)
--- NOTE | 2019-02-10 06:33 | NUR ---
327*1 MS/RN NOTES PATIENT IN BED, ABLE TO SLEEP DURING THE NIGHT, RESPIRATIONS EVEN AND UNLABORED. MONITORED FOR ANY CHANGES, KEPT COMFORTABLE. BED LOCKED, CALL LIGHTS WITHIN REACH, WILL ENDORSE TO AM RN FOR IRINEO.
[2019-02-10 07:31] LABS: BASOPHILS # (AUTO) 0.1 /CMM (0.0-0.2); EOSINOPHILS % (AUTO) 3.6 % (0.0-6.0); HEMATOCRIT 30 % (39-51); HEMOGLOBIN 10.1 g/dL (13.5-17.5); LYMPHOCYTES % (AUTO) 15.7 % (20.0-44.0); MEAN CORPUSCULAR HGB CONC 34 g/dl (31.0-36.0); MEAN CORPUSCULAR VOLUME 90 fL (80-96); MONOCYTES # (AUTO) 0.4 /CMM (0.1-1.30); MONOCYTES % (AUTO) 6.4 % (2.0-12.0); NEUTROPHILS # (AUTO) 4.6 /CMM (1.8-8.9); NEUTROPHILS % (AUTO) 73.3 % (43.0-81.0); PLATELET COUNT (AUTO) 193 /CMM (150-450); WHITE BLOOD COUNT (AUTO) 6.3 K/uL (4.3-11.0)
[2019-02-10 07:41] LABS: ALANINE AMINOTRANSFERASE 36 U/L (12-78); ALBUMIN 2.3 g/dL (3.4-5.0); ALKALINE PHOSPHATASE 124 U/L (46-116); ASPARTATE AMINOTRANSFERASE 12 U/L (15-37); BILIRUBIN,TOTAL 0.4 mg/dL (0.2-1.0); CALCIUM, SERUM 8.9 mg/dL (8.5-10.1); CARBON DIOXIDE 29 mmol/L (21-32); CHLORIDE 102 mmol/L (98-107); CREATININE 1.1 mg/dL (0.6-1.3); GLUCOSE 124 mg/dL (74-106); MAGNESIUM 2.1 mg/dL (1.8-2.4); PHOSPHORUS 2.7 mg/dL (2.5-4.9); POTASSIUM 3.5 mmol/L (3.5-5.1); SODIUM SERUM 138 mmol/L (136-145); TOTAL PROTEIN, SERUM 6.1 g/dL (6.4-8.2); UREA NITROGEN, BLOOD 14 mg/dL (7-18)
[2019-02-10] MEDS: LEVOTHYROXINE SODIUM 125 MCG TABLET PO SCH (07:44)
--- NOTE | 2019-02-10 07:51 | NUR ---
M/S RN OPENING NOTES RECEIVED PATIENT ON BED ON LEFT SIDE LYING POSITION, A/O X 4 AND RESPONSIVE TO ALL STIMULI. PATIENT ABLE TO MAKE NEEDS KNOWN. RESPIRATION EVEN AND NON LABORED WITH NO ACUTE RESPIRATORY DISTRESS, LUNGS CLEARED BILATERALLY. ABDOMEN SOFT AND NON DISTENDED WITH ACTIVE BOWEL SOUNDS TO ALL QUADRANTS, ON ALBA CATHETER. SKIN WARM TO TOUCH AND DRY. PATIENT COMPLAIN OF PAIN 4/10 AND ABLE TO TOLERATE, PAIN MEDICATION NOT NEEDED AT THIS TIME. IV SITE AT LEFT WRIST GAUGE 20 WITH NO S/SX OF INFILTRATION. ALL CONCERNS ADDRESSED. PLACED CALL LIGHT WITHIN REACH FOR SAFETY. WILL CONTINUE TO EVALUATE CARE.
[2019-02-10 08:00] VITALS: BP 101/62
[2019-02-10] MEDS: PANTOPRAZOLE 40 MG/PACK PACK PO SCH (08:45)
[2019-02-10] MEDS: CHOLECALCIFEROL 1,000 UNIT TABLET (VIT D3) PO SCH (08:45)
[2019-02-10] MEDS: ASCORBIC ACID 500 MG TABLET PO SCH (08:47)
[2019-02-10] MEDS: SOTALOL HCL 80 MG TABLET PO SCH ×2 (08:47→16:26)
[2019-02-10] MEDS: GUAIFENESIN LA 600 MG TABLET.SA PO SCH (08:47)
--- NOTE | 2019-02-10 08:48 | NUR ---
M/S RN PATIENT REFUSED MUCINEX AND OFFERED X 3, EXPLAINED RISK AND BENEFITS OF MEDICATION. PATIENT STILL REFUSED. WILL CONTINUE TO MONITOR.
--- NOTE | 2019-02-10 10:47 | NUR ---
M/S RN RECEIVED NEW ORDER FROM JOY TO CHANGE DIET FROM FULL LIQUID TO SOFT DIET, ORDER VERIFIED NOTED AND CARRIED OUT. PATIENT NOTIFIED
[2019-02-10] MEDS: INSULIN REGULAR, HUMAN 100 UNIT/ML 3 ML VIAL SQ PRN (11:42)
[2019-02-10] MEDS: SOD FERRIC GLUC 125 MG in IV NS 0.9% 100 ML IV SCH (15:46)
[2019-02-10 16:00] VITALS: BP 120/69
[2019-02-10] MEDS: WARFARIN SODIUM 2 MG TABLET PO SCH (16:25)
[2019-02-10 20:00] VITALS: BP 140/75
[2019-02-10 20:53] VITALS: BP 100/60
--- NOTE | 2019-02-10 20:55 | NUR ---
RN Notes Patient for discharge home, discharge instructions given by morning nurse with prescription. Vital signs stable, afebrile. Lap sites dressing clean dry and intact. Pain at tolerable level, 2/10. IV access removed and pressure dressing applied. Picked up by [facility] ambulance with all belongings complete including the CPAP. Discharged in stable condition.
== END 2019-02-10 20:55 | disposition home health service (06) | DRG 417 ==
LOC: ER 22:30 → MED 02-02 01:08 → ICU 02-06 19:50 → MED 02-08 11:56
PROVIDERS: ADMIT Registered Nurse; ATTEND Hospitalist
PROC: 30233K1 Transfusion of Nonautologous Frozen Plasma into Peripheral Vein, Percutaneous Approach (ICD-10-PCS; 2019-02-02)
PROC: 0F943ZZ Drainage of Gallbladder, Percutaneous Approach (ICD-10-PCS; 2019-02-04)
PROC: 5A1935Z Respiratory Ventilation, Less than 24 Consecutive Hours (ICD-10-PCS; 2019-02-06)
PROC: 0FT44ZZ Resection of Gallbladder, Percutaneous Endoscopic Approach (ICD-10-PCS; principal; 2019-02-07)
PROC: 0DNU4ZZ Release Omentum, Percutaneous Endoscopic Approach (ICD-10-PCS; 2019-02-07)
PROC: 5A09457 Assistance with Respiratory Ventilation, 24-96 Consecutive Hours, Continuous Positive Airway Pressure (ICD-10-PCS; 2019-02-07)
DX: K82.A1 Gangrene of gallbladder in cholecystitis (principal); J96.20 Acute and chronic respiratory failure, unspecified whether with hypoxia or hypercapnia; N17.0 Acute kidney failure with tubular necrosis; K81.0 Acute cholecystitis; E87.1 Hypo-osmolality and hyponatremia; N17.9 Acute kidney failure, unspecified; I13.0 Hypertensive heart and chronic kidney disease with heart failure and stage 1 through stage 4 chronic kidney disease, or unspecified chronic kidney disease; J98.11 Atelectasis; D68.59 Other primary thrombophilia; I50.22 Chronic systolic (congestive) heart failure; Z95.1 Presence of aortocoronary bypass graft; F41.9 Anxiety disorder, unspecified; I25.5 Ischemic cardiomyopathy; I34.0 Nonrheumatic mitral (valve) insufficiency; Z95.810 Presence of automatic (implantable) cardiac defibrillator; D72.829 Elevated white blood cell count, unspecified; D50.9 Iron deficiency anemia, unspecified; I71.6 Thoracoabdominal aortic aneurysm, without rupture; I48.2 Chronic atrial fibrillation; I25.2 Old myocardial infarction; I25.10 Atherosclerotic heart disease of native coronary artery without angina pectoris; Z99.81 Dependence on supplemental oxygen; E66.01 Morbid (severe) obesity due to excess calories; Z68.33 Body mass index [BMI] 33.0-33.9, adult; G47.33 Obstructive sleep apnea (adult) (pediatric); N18.9 Chronic kidney disease, unspecified; E11.22 Type 2 diabetes mellitus with diabetic chronic kidney disease; K21.9 Gastro-esophageal reflux disease without esophagitis; K82.8 Other specified diseases of gallbladder; M10.9 Gout, unspecified; Z79.01 Long term (current) use of anticoagulants; Z86.73 Personal history of transient ischemic attack (TIA), and cerebral infarction without residual deficits; Z87.891 Personal history of nicotine dependence; Z83.3 Family history of diabetes mellitus; E87.6 Hypokalemia; E78.5 Hyperlipidemia, unspecified; E83.42 Hypomagnesemia; G89.29 Other chronic pain; Z82.49 Family history of ischemic heart disease and other diseases of the circulatory system; N40.0 Benign prostatic hyperplasia without lower urinary tract symptoms; R16.0 Hepatomegaly, not elsewhere classified; J44.9 Chronic obstructive pulmonary disease, unspecified
CPT/HCPCS: 31720; 36415; 36600; 71045-TC; 75989; 75989-TC; 76705-TC; 78226; 80048-TC; 80053-TC; 80061-TC; 80076-TC; 82550-TC; 82728-TC; 82803-TC; 82962-TC; 83540-TC; 83690-TC; 83735-TC; 83880; 83970; 84100-TC; 84155; 84165; 84439-TC; 84443-TC; 84484-TC; 85025-TC; 85610-TC; 85730-TC; 86850-TC; 87081-TC; 88304-TC; 88305-TC; 88312-TC; 94002-TC; 94660; 94760-TC; 94799-TC; 97110-TC; 97116-TC; 97530-TC; 99082-TC; A4216; A6209; A6402; A6403; A9537; C9113; G0378; J0690; J1815; J1940; J1956; J2250; J2270; J2310; J2405; J2543; J2710; J2765; J2916; J3010; J3430; J3475; J3480; J3490; J7030; J7040; J7042; J7050; J7060; P9017-BL

== ENCOUNTER 2019-05-10 22:30 | Inpatient (IN) | payer MEDICARE, BC ==
[~2019-05-10] VITALS: Ht 182.9 cm; Wt 109.8 kg
[~2019-05-10 22:30] MED LIST changes: -HYDR-4354 PO; +WARF-68 PO
--- NOTE | 2019-05-10 22:33 | NUR ---
RT AT BEDSIDE FOR CIPAP SET UP.
--- NOTE | 2019-05-10 22:34 | NUR ---
PT [id number] FROM HOME C/C SOB X1DAY. 2 NITRO GIVEN STITCH WELDER. RELIEVED SOME SOB. PT IS AAOX3, NOT IN RESPIRATORY DISTRESS, V/S STABLE, KEPT EESTED AND COMFORTABLE, WILL CONTINUE TO MONITOR.
--- NOTE | 2019-05-10 22:36 | NUR ---
DR. ROLON AT BEDSIDE FOR EVAL.
[2019-05-10] MEDS ORDERED: FUROSEMIDE 40 MG/4 ML VIAL ONE (22:45)
[2019-05-10 22:53] LABS: BASOPHILS # (AUTO) 0.1 /CMM (0.0-0.2); BASOPHILS % (AUTO) 1.3 % (0.0-2.0); EOSINOPHILS % (AUTO) 7.3 % (0.0-6.0); HEMATOCRIT 31 % (39-51); HEMOGLOBIN 10.3 g/dL (13.5-17.5); LYMPHOCYTES # (AUTO) 1.2 /CMM (0.8-4.8); LYMPHOCYTES % (AUTO) 26.4 % (20.0-44.0); MEAN CORPUSCULAR HGB CONC 33 g/dl (31.0-36.0); MEAN CORPUSCULAR VOLUME 90 fL (80-96); MONOCYTES # (AUTO) 0.3 /CMM (0.1-1.30); MONOCYTES % (AUTO) 5.6 % (2.0-12.0); NEUTROPHILS # (AUTO) 2.8 /CMM (1.8-8.9); NEUTROPHILS % (AUTO) 59.4 % (43.0-81.0); PLATELET COUNT (AUTO) 165 /CMM (150-450); RED BLOOD CELL COUNT(AUTO) 3.43 MIL/uL (4.5-6.0); WHITE BLOOD COUNT (AUTO) 4.7 K/uL (4.3-11.0)
[2019-05-10] MEDS ORDERED: FUROSEMIDE 40 MG/4 ML VIAL IV ONE (23:00)
[2019-05-10 23:03] LABS: CALCIUM, SERUM 8.6 mg/dL (8.5-10.1); CARBON DIOXIDE 26 mmol/L (21-32); CHLORIDE 104 mmol/L (98-107); CREATININE 1.2 mg/dL (0.6-1.3); GLUCOSE 205 mg/dL (74-106); POTASSIUM 3.3 mmol/L (3.5-5.1); SODIUM SERUM 138 mmol/L (136-145); UREA NITROGEN, BLOOD 14 mg/dL (7-18)
--- NOTE | 2019-05-10 23:07 | NUR ---
ELIGIBILITY SUPERVISOR AT BEDSIDE FOR XRAY.
[2019-05-10 23:17] LABS: B-TYPE NATRIURETIC PEPTIDE 3065 PG/ML (0-125)
--- NOTE | 2019-05-11 00:26 | NUR ---
REPORT GIVEN TO JC WOODWARD FOR IRINEO.
[2019-05-11] MEDS ORDERED: MAGNESIUM HYDROXIDE 30 ML UDC PO PRN (00:30)
[2019-05-11] MEDS ORDERED: Z GUARD REMEDY 2 OZ OINT TP PRN (00:30)
[2019-05-11] MEDS ORDERED: HYDROCODONE/APAP 5/325MG 1 EACH TABLET PO PRN (00:30)
[2019-05-11] MEDS ORDERED: ENOXAPARIN SODIUM 40 MG/0.4 ML DISP.SYRIN SQ SCH (00:30)
[2019-05-11] MEDS ORDERED: MAG HYDROX/AL HYDROX/SIMETH 30 ML UDC PO PRN (00:30)
[2019-05-11] MEDS ORDERED: ONDANSETRON HCL/PF 4 MG/2 ML VIAL IVP PRN (00:30)
[2019-05-11] MEDS ORDERED: DEXTROSE 50%-WATER 50 ML DISP.SYRIN IV PRN (00:30)
--- NOTE | 2019-05-11 01:10 | NUR ---
RECEIVED PATIENT FROM ED VIA GURNEY IN STABLE CONDITION. PATIENT AWAKE, A/0X4 AND ABLE TO VERBALIZED NEEDS. NO C/O PAIN OR DISCOMFORT. O2 AT 3LPM VIA INTACT AND PATENT. LFA PERIPHERAL LINE #18 APRYL INTACT AND PATENT. ENCOURAGED USE OF CALL LIGHT FOR ASSISTANCE AND VERBALIZED INSTRUCTIONS. BED IN LOW LOCK SETTING. ROOM FREE OF CLUTTER AND BELONGINGS KEPT NEAR BEDSIDE. WILL CONTINUE TO MONITOR
[2019-05-11 04:00] VITALS: BP 145/82
--- NOTE | 2019-05-11 06:56 | NUR ---
MS [facility]ONA NOTES PATIENT ASLEEP IN BED WITH NO DISTRESS NOTED. CALL LIGHT WITHIN REACH. ALL DUE MEDS GIVEN ORDERED WITH NO ASE NOTED. NO C/O PAIN OR DISCOMFORT. PERIPHERAL LINE INTACT AND PATENT. BED IN LOW LOCK SETTING. WILL ENDORSE TO ONCOMING SHIFT. Addendum: 05/11/19 at 0657 by SAVANNAH FELTON RN MAICOL [facility] NOTES
--- NOTE | 2019-05-11 07:20 | NUR ---
RN INITIAL NOTES PATIENT IN BED, SITTING. AWAKE AND ALERT. LAB AT BEDSIDE TO DO MORNING ROUTINE BLOOD DRAW. PATIENT ALERT AND ORIENTED X3. ON TELE MONITOR, V PACING AT 70s. HAS A BLE +4 EDEMA. PER NOC SHIFT, PATIENT USES THE URINAL. HAS A LEFT FA #18 SALINE LOCKED. STRICT I AND O ORDER. NO COMPLAINS OF ANY PAIN NOR SOB. CALL LIGHT WITHIN REACH. WILL CONT TO MONITOR CLOSELY.
[2019-05-11 07:56] LABS: BASOPHILS # (AUTO) 0.1 /CMM (0.0-0.2); BASOPHILS % (AUTO) 1.7 % (0.0-2.0); HEMATOCRIT 32 % (39-51); HEMOGLOBIN 10.7 g/dL (13.5-17.5); LYMPHOCYTES # (AUTO) 1.3 /CMM (0.8-4.8); LYMPHOCYTES % (AUTO) 27.1 % (20.0-44.0); MEAN CORPUSCULAR HGB CONC 33 g/dl (31.0-36.0); MEAN CORPUSCULAR VOLUME 89 fL (80-96); MONOCYTES # (AUTO) 0.3 /CMM (0.1-1.30); MONOCYTES % (AUTO) 6.1 % (2.0-12.0); NEUTROPHILS # (AUTO) 2.8 /CMM (1.8-8.9); NEUTROPHILS % (AUTO) 56.1 % (43.0-81.0); PLATELET COUNT (AUTO) 176 /CMM (150-450); RED BLOOD CELL COUNT(AUTO) 3.59 MIL/uL (4.5-6.0)
[2019-05-11] MEDS: BLOOD SUGAR DIAGNOSTIC 1 EACH STRIP IN SCH ×4 (07:58→22:26)
[2019-05-11 08:00] VITALS: BP 104/77
[2019-05-11 08:20] LABS: ALANINE AMINOTRANSFERASE 22 U/L (12-78); ALBUMIN 3.2 g/dL (3.4-5.0); ALKALINE PHOSPHATASE 113 U/L (46-116); ASPARTATE AMINOTRANSFERASE 18 U/L (15-37); BILIRUBIN,TOTAL 0.5 mg/dL (0.2-1.0); CARBON DIOXIDE 30 mmol/L (21-32); CHLORIDE 103 mmol/L (98-107); CREATININE 1.3 mg/dL (0.6-1.3); GLUCOSE 133 mg/dL (74-106); POTASSIUM 3.7 mmol/L (3.5-5.1); SODIUM SERUM 141 mmol/L (136-145); UREA NITROGEN, BLOOD 12 mg/dL (7-18)
[2019-05-11] MEDS: LEVOTHYROXINE SODIUM 75 MCG TABLET PO SCH (08:47)
[2019-05-11] MEDS: CHOLECALCIFEROL 1,000 UNIT TABLET (VIT D3) PO SCH (08:48)
[2019-05-11] MEDS: FUROSEMIDE 40 MG/4 ML VIAL IV SCH ×3 (08:49→16:12)
[2019-05-11] MEDS: ASCORBIC ACID 500 MG TABLET PO SCH (08:49)
[2019-05-11] MEDS: SOTALOL HCL 80 MG TABLET PO SCH ×2 (08:59→16:15)
[2019-05-11] MEDS ORDERED: Medication Not On Formulary EA (Omega-3 Fatty Acids/Fish Oil (Fish Oil 1,000 Mg Capsule) PO SCH (09:00)
[2019-05-11] MEDS: INSULIN REGULAR, HUMAN 100 UNIT/ML 3 ML VIAL SQ PRN ×2 (12:27→18:10)
--- NOTE | 2019-05-11 14:12 | NUR ---
RN NOTES PATIENT ASKED FOR A HUMIDIFIER FOR HIS O2. PATIENT COMPLIANT WITH EVERYTHING AND IS STABLE. NO COMPLAINS OF ANY PAIN OR SOB
[2019-05-11 16:00] VITALS: BP 123/80
[2019-05-11] MEDS ORDERED: WARFARIN SODIUM 2 MG TABLET PO SCH (17:00)
--- NOTE | 2019-05-11 19:00 | NUR ---
RN williesurclary notes Received Pt from morning nurse. Pt is alert and oriented X4. Pt is sitting at bed side chair. Respiration is normal. No SOB. No nausea or vomiting. No S/S of distress noted. Pt denies pain or discomfort at this time. Gave Pt hospital socks. IV sites at LFA # 18 is intact, patent and SL. Pt's on strict I&O. Pt verbalized understanding. Instructed Pt to call. Safety precaution is maintained. Bed at low position, brakes on, side rails upX2 and call light is within reach. Will continue to monitor and assist needs.
--- NOTE | 2019-05-11 19:42 | NUR ---
RN CLOSING NOTES PATIENT SITTING ON THE CHAIR, ALERT AND ORIENTED. WAS GIVEN 3 DOSES OF LASIX WITH THE URINE OUTPUT OF 2000MLS. ALL MEDS GIVEN, WELL INSULIN COVERAGE. PATIENT ATE 100% OF ALL HIS MEALS. NO COMPLAINS OF ANY PAIN. ON 3L NC O2, NO SOB NOTED. PATIENT AMBULATORY WITH ASSIST. ENDORSED TO [facility] SHIFT FOR IRINEO
[2019-05-11 20:00] VITALS: BP 122/76
[2019-05-11 20:30] VITALS: BP 122/76
[2019-05-11] MEDS: LISINOPRIL (5MG) 5 MG TABLET PO SCH (21:49)
--- NOTE | 2019-05-11 21:50 | NUR ---
RN williesumichelle notes Pt refused Blood pressure medication Lisinopril 5 mg. Pt states "5 mg will drop my blood pressure to low. I'm feeling good. I don't want it." Made aware of risks and benefits. Pt refused two times. Pt's BP 120/71, Pulse 70. Will continue to monitor.
[2019-05-11] MEDS: TAMSULOSIN 0.4 MG CAP.SR.24H PO SCH (21:57)
[2019-05-11] MEDS: ALLOPURINOL 100 MG TABLET PO SCH (21:57)
[2019-05-11] MEDS: ASPIRIN 81 MG TAB.CHEW PO SCH (21:57)
[2019-05-12] MEDS: ACETAMINOPHEN 325 MG TABLET PO PRN ×2 (01:33→18:51)
--- NOTE | 2019-05-12 01:33 | NUR ---
CJ medsurg notes Pt is complaining of headache. CJ Alicia administered Tylenol 650mg/PO as ordered for headache. Will continue to monitor.
--- NOTE | 2019-05-12 02:44 | NUR ---
RN medsurg notes Pt is asleep in bed comfortably with no S/S of distress noted. Will continue to monitor.
--- NOTE | 2019-05-12 07:15 | NUR ---
RN medsurg closing notes Pt is laying in bed comfortably. Awaken easily. No SOB. No S/S of distress noted. IV sites at LFA is intact, patent and SL. VS is stable. Afebrile. Routine meds were given. All needs met. Safety precautions is maintained. Bed at low position and call light is within reach. Instructed to call. Will endorse to morning nurse for IRINEO
[2019-05-12] MEDS: BLOOD SUGAR DIAGNOSTIC 1 EACH STRIP IN SCH ×4 (07:25→21:34)
[2019-05-12] MEDS: LEVOTHYROXINE SODIUM 75 MCG TABLET PO SCH (07:29)
--- NOTE | 2019-05-12 07:53 | NUR ---
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 Lab results pending. CXR yesterday showed mild pulmonary vascular congestion, on Lasix IV TID. CXR result today is pending. Fall and aspiration precautions maintained. All needs attended and met. Discussed plan of care with patient. Will continue with current medical management.
[2019-05-12 08:00] VITALS: BP 131/62
--- NOTE | 2019-05-12 08:00 | NUR ---
MS/RN - S/b Dr. Ma Seen and examined by Dr. Ma with order to increase Lasix to 80 mg every 4 hours x 3 doses and give potassium chloride 20 meq x 3 doses.
[2019-05-12] MEDS: CHOLECALCIFEROL 1,000 UNIT TABLET (VIT D3) PO SCH (08:19)
[2019-05-12] MEDS: FUROSEMIDE 40 MG/4 ML VIAL IV SCH (08:19)
[2019-05-12] MEDS: ASCORBIC ACID 500 MG TABLET PO SCH (08:20)
[2019-05-12] MEDS: SOTALOL HCL 80 MG TABLET PO SCH ×2 (08:20→16:44)
[2019-05-12 08:53] LABS: BASOPHILS # (AUTO) 0.1 /CMM (0.0-0.2); BASOPHILS % (AUTO) 2.4 % (0.0-2.0); EOSINOPHILS % (AUTO) 10.6 % (0.0-6.0); HEMATOCRIT 33 % (39-51); HEMOGLOBIN 10.9 g/dL (13.5-17.5); LYMPHOCYTES # (AUTO) 1.4 /CMM (0.8-4.8); LYMPHOCYTES % (AUTO) 31.2 % (20.0-44.0); MEAN CORPUSCULAR HGB CONC 33 g/dl (31.0-36.0); MEAN CORPUSCULAR VOLUME 90 fL (80-96); MONOCYTES # (AUTO) 0.3 /CMM (0.1-1.30); MONOCYTES % (AUTO) 6.2 % (2.0-12.0); NEUTROPHILS # (AUTO) 2.2 /CMM (1.8-8.9); NEUTROPHILS % (AUTO) 49.6 % (43.0-81.0); PLATELET COUNT (AUTO) 173 /CMM (150-450); WHITE BLOOD COUNT (AUTO) 4.4 K/uL (4.3-11.0)
[2019-05-12] MEDS ORDERED: FUROSEMIDE 40 MG/4 ML VIAL IV ONE (09:00)
[2019-05-12] MEDS: POTASSIUM CHLORIDE 20 MEQ TAB.PRT.SR PO SCH ×3 (09:01→11:01)
[2019-05-12 09:16] LABS: CHOLESTEROL 95 mg/dL (<200); HDL CHOLESTEROL 31 mg/dL (40-60); LDL 55 mg/dL (0-99); THYROID STIMULATING HORMONE 2.367 uIU/mL (0.358-3.74); TRIGLYCERIDES 90 mg/dL (30-150)
[2019-05-12 09:19] LABS: ALANINE AMINOTRANSFERASE 20 U/L (12-78); ALBUMIN 3.2 g/dL (3.4-5.0); ALKALINE PHOSPHATASE 112 U/L (46-116); ASPARTATE AMINOTRANSFERASE 20 U/L (15-37); BILIRUBIN,TOTAL 0.6 mg/dL (0.2-1.0); CALCIUM, SERUM 8.9 mg/dL (8.5-10.1); CARBON DIOXIDE 33 mmol/L (21-32); CHLORIDE 101 mmol/L (98-107); CREATININE 1.4 mg/dL (0.6-1.3); GLUCOSE 135 mg/dL (74-106); MAGNESIUM 1.7 mg/dL (1.8-2.4); PHOSPHORUS 4.5 mg/dL (2.5-4.9); POTASSIUM 3.9 mmol/L (3.5-5.1); SODIUM SERUM 140 mmol/L (136-145); UREA NITROGEN, BLOOD 14 mg/dL (7-18)
--- NOTE | 2019-05-12 11:00 | NUR ---
MS/RN - S/b Dr. Rich Seen and examined by Dr. Rich with no new orders.
[2019-05-12] MEDS: INSULIN REGULAR, HUMAN 100 UNIT/ML 3 ML VIAL SQ PRN ×2 (12:09→21:41)
[2019-05-12] MEDS: FUROSEMIDE 100 MG/10 ML VIAL IV SCH ×2 (12:09→16:43)
--- NOTE | 2019-05-12 14:00 | NUR ---
MS/RN - Notes Patient ambulating in the hallway, denies pain, no apparent distress.
[2019-05-12 16:00] VITALS: BP 123/61
[2019-05-12] MEDS ORDERED: WARFARIN SODIUM 5 MG TABLET PO SCH (17:00)
--- NOTE | 2019-05-12 18:07 | NUR ---
MS/RN - End of shift summary No significant change in condition seen. Lasix 80 mg IVP x 3 doses given, diuresing well. No fall/injury this shift. Will endorse to night nurse accordingly.
--- NOTE | 2019-05-12 19:30 | NUR ---
MS DONI INITIAL NOTES RECEIVED REPORT FROM AM NURSE STEVEN AND SEEN PT IN BED SITTING AWAKE AND ALERT X4. WHILE WATCHING TV AT THIS TIME. DENIES ANY PAIN OR ANY DISCOMFORT. DENIES ANY PAIN OR ANY DISCOMFORT. NO SIGNS OF ANY DISTRESS NOTED. BREATHING EVEN AND NON-LABORED. KEPT HIM WARM AND COMFORTABLE AT ALL TIMES. RE-ORIENTED AND ENCOURAGE HIM TO USED THE CALL LIGHT SYSTEM IF HE NEEDS SOME HELPED OR NEEDS ASSISTANCE. WILL CONTINUE MONITORING. PLACE CALL LIGHT AT REACH.
[2019-05-12 20:00] VITALS: BP 113/65
[2019-05-12] MEDS: ASPIRIN 81 MG TAB.CHEW PO SCH (21:34)
[2019-05-12] MEDS: LISINOPRIL (5MG) 5 MG TABLET PO SCH (21:34)
[2019-05-12] MEDS: ALLOPURINOL 100 MG TABLET PO SCH (21:34)
[2019-05-12] MEDS: TAMSULOSIN 0.4 MG CAP.SR.24H PO SCH (21:34)
--- NOTE | 2019-05-12 22:00 | NUR ---
ms railway station manager notes blood sugar 124, no insulin due at this time, due meds given and snacks also served per pt requested. no signs of hypo glycemia noted. will continue monitoring.
--- NOTE | 2019-05-13 | NUR ---
ms manufacturer's service representative notes pt sleeping comfortably in bed without any distress noted. respiration even and non-labored. kept him warm and comfortable at all times. will continue monitoring. place call light at reach.
--- NOTE | 2019-05-13 03:00 | NUR ---
ms director of collections notes pt remain asleep.
[2019-05-13] MEDS: BLOOD SUGAR DIAGNOSTIC 1 EACH STRIP IN SCH ×3 (06:33→16:34)
[2019-05-13] MEDS: LEVOTHYROXINE SODIUM 75 MCG TABLET PO SCH (06:34)
--- NOTE | 2019-05-13 07:10 | NUR ---
MS INDUSTRIAL PSYCHOLOGY PROFESSOR CLOSING NOTES PT WOKE UP AND DID BLOOD SUGAR CHECKED DONE 112, NO INSULIN DUE AT THIS TIME. NO SIGNS OF HYPO GLYCEMIA NOTED, ALL DUE MEDS GIVEN AND ALL NEEDS MET. STABLE MALIA THE NIGHT AND SLEPT WELL. KEPT HIM WARM AND COMFORTABLE AT ALL TIMES. PLACE CALL LIGHT AT REACH. ENDORSE TO AM NURSE STEVEN FOR CONTINUITY OF CARE. PLACE CALL LIGHT AT REACH.
--- NOTE | 2019-05-13 07:15 | NUR ---
MS/RN - Assessment Patient awake, A/O x 4, no complaints overnight, states breathing better, denies chest pain, no apparent distress noted, afebrile, stable on room air. Saline lock on the LFA is patent, intact, with no signs of infiltration. Morning labs with pending result. Patient is independent with bed mobility, ambulates with walker. Patient was educated on plan of care. Fall and aspiration precautions maintained. Will continue with current medical management.
[2019-05-13 08:00] VITALS: BP 99/63
[2019-05-13] MEDS: ASCORBIC ACID 500 MG TABLET PO SCH (08:27)
[2019-05-13] MEDS: SOTALOL HCL 80 MG TABLET PO SCH ×2 (08:27→16:29)
[2019-05-13] MEDS: CHOLECALCIFEROL 1,000 UNIT TABLET (VIT D3) PO SCH (08:27)
[2019-05-13] MEDS ORDERED: FUROSEMIDE 40 MG/4 ML VIAL IV SCH (09:00)
[2019-05-13 09:13] LABS: BASOPHILS # (AUTO) 0.1 /CMM (0.0-0.2); BASOPHILS % (AUTO) 2.1 % (0.0-2.0); EOSINOPHILS % (AUTO) 10.2 % (0.0-6.0); HEMATOCRIT 34 % (39-51); HEMOGLOBIN 11.2 g/dL (13.5-17.5); LYMPHOCYTES # (AUTO) 1.4 /CMM (0.8-4.8); LYMPHOCYTES % (AUTO) 29.7 % (20.0-44.0); MEAN CORPUSCULAR HGB CONC 33 g/dl (31.0-36.0); MEAN CORPUSCULAR VOLUME 89 fL (80-96); MONOCYTES # (AUTO) 0.3 /CMM (0.1-1.30); MONOCYTES % (AUTO) 5.9 % (2.0-12.0); NEUTROPHILS # (AUTO) 2.4 /CMM (1.8-8.9); NEUTROPHILS % (AUTO) 52.1 % (43.0-81.0); PLATELET COUNT (AUTO) 190 /CMM (150-450); RED BLOOD CELL COUNT(AUTO) 3.78 MIL/uL (4.5-6.0); WHITE BLOOD COUNT (AUTO) 4.7 K/uL (4.3-11.0)
[2019-05-13 09:19] LABS: ALANINE AMINOTRANSFERASE 23 U/L (12-78); ALBUMIN 3.3 g/dL (3.4-5.0); ALKALINE PHOSPHATASE 114 U/L (46-116); ASPARTATE AMINOTRANSFERASE 22 U/L (15-37); BILIRUBIN,TOTAL 0.5 mg/dL (0.2-1.0); CALCIUM, SERUM 9.2 mg/dL (8.5-10.1); CARBON DIOXIDE 35 mmol/L (21-32); CHLORIDE 99 mmol/L (98-107); CREATININE 1.4 mg/dL (0.6-1.3); GLUCOSE 131 mg/dL (74-106); MAGNESIUM 1.8 mg/dL (1.8-2.4); PHOSPHORUS 4.4 mg/dL (2.5-4.9); POTASSIUM 3.5 mmol/L (3.5-5.1); SODIUM SERUM 139 mmol/L (136-145); TOTAL PROTEIN, SERUM 7.1 g/dL (6.4-8.2); UREA NITROGEN, BLOOD 20 mg/dL (7-18)
[2019-05-13] MEDS ORDERED: FUROSEMIDE 40 MG TABLET PO SCH (09:30)
--- NOTE | 2019-05-13 10:20 | NUR ---
MS/RN - S/b Dr. Hall Seen and evaluated by Dr. Hall with no new order at this time.
--- NOTE | 2019-05-13 11:20 | NUR ---
MS/RN - S/b Dr. Rich Seen and examined by Dr. Rich with order for discharge home today.
--- NOTE | 2019-05-13 14:00 | NUR ---
MS/RN - Notes Patient is sleeping comfortably, stable on room air, no s/s of distress. Will continue to monitor.
--- NOTE | 2019-05-13 15:30 | NUR ---
MS/RN - Notes Spoke with field nurse case manager, ambulance ETA 18:00, patient made aware.
[2019-05-13 16:00] VITALS: BP 97/49
[2019-05-13 16:29] VITALS: BP 97/49
[2019-05-13] MEDS ORDERED: WARFARIN SODIUM 2 MG TABLET PO SCH (17:00)
--- NOTE | 2019-05-13 18:30 | NUR ---
M/S RN - Discharge Patient was discharged home via ambulance in stable condition, remain afebrile, denies any chest pain, no c/o shortness of breath, on room air, SpO2 92-93%, ambulates with walker, A/O x 4. Reviewed discharge instructions with patient and he verbalized full understanding of all teachings including home medications/prescriptions and follow-up care with his PCP within one to two weeks. Appointment was arranged for him on 05/17/19 at 12:00 pm at [facility]. Discussed with patient to seek immediate medical attention for worsening of symptoms, chest pain, shortness of breath, fever, confusion, weakness, fatigue, dizziness, or any other emergent medical concerns. All belongings with patient and deny any missing items. Patient refused photos to be taken of skin, no open wounds noted. Saline lock removed on the LFA, with catheter tip intact, no redness, no swelling or excessive bleeding noted at the site. Discharge paperwork signed and copies were given per protocol.
--- NOTE | 2019-05-14 07:43 | NUR ---
ECHO REPORT IS DONE AWAITING FOR REPORT TO CROSS OVER TO [facility].
== END 2019-05-13 18:26 | disposition home or self-care (01) | DRG 291 ==
LOC: ER 22:35 → TELE 05-11 00:21 → MED 05-11 10:14
PROVIDERS: ADMIT Internal Medicine; ATTEND Internal Medicine
DX: I11.0 Hypertensive heart disease with heart failure (principal); J96.01 Acute respiratory failure with hypoxia; N17.0 Acute kidney failure with tubular necrosis; D68.59 Other primary thrombophilia; I50.23 Acute on chronic systolic (congestive) heart failure; E11.9 Type 2 diabetes mellitus without complications; M10.9 Gout, unspecified; G89.29 Other chronic pain; D63.8 Anemia in other chronic diseases classified elsewhere; I25.10 Atherosclerotic heart disease of native coronary artery without angina pectoris; I48.91 Unspecified atrial fibrillation; I42.9 Cardiomyopathy, unspecified; Z95.1 Presence of aortocoronary bypass graft; Z95.810 Presence of automatic (implantable) cardiac defibrillator; I25.2 Old myocardial infarction; E78.5 Hyperlipidemia, unspecified; J44.9 Chronic obstructive pulmonary disease, unspecified; Z99.81 Dependence on supplemental oxygen; N40.0 Benign prostatic hyperplasia without lower urinary tract symptoms; K21.9 Gastro-esophageal reflux disease without esophagitis; M54.9 Dorsalgia, unspecified; F41.9 Anxiety disorder, unspecified; Z86.73 Personal history of transient ischemic attack (TIA), and cerebral infarction without residual deficits; Z79.01 Long term (current) use of anticoagulants
CPT/HCPCS: 36415; 71045-TC; 80048-TC; 80053-TC; 80061-TC; 82962-TC; 83735-TC; 83880; 84100-TC; 84443-TC; 84484-TC; 85025-TC; 85610-TC; 85730-TC; 87081-TC; 93307-TC; G0378; J1815; J1940